=== PATIENT | female | born 1940 | race Caucasian/White ===

== ENCOUNTER 2016-12-03 18:26 | Inpatient (IN) | payer MEDICARE, BC ==
[~2016-12-03 18:26] MED LIST: Heparin 1,000 UNITS/ML VIAL ONE
--- OUTSIDE RECORDS SUMMARY | 2016-12-03 18:29 | XMS | Clinical Summary ---
:1940 Author Organization [facility] Address [address] [place] [address] Phone Care Team Providers Name Role Phone , Primary Care Provider Unavailable Allergies Not on File Current Medications Not on file Active Problems Not on file Social History Tobacco Use Types Packs/Day Years Used Date Never Assessed Sex Assigned at Date Recorded Not on file Last Filed Vital Signs Not on file Plan of Treatment Not on file Results Not on filefrom Last 3 Months
[2016-12-03 19:49] LABS: #Lymphocytes 1.8 thou/uL (1.20-3.40); #Neutrophils 7.4 thou/uL (1.40-6.50); %Basophils 0.3 % (0.0-1.0); %Eosinophils 0.1 % (0.0-10.0); %Lymphocytes 17.7 % (21.0-51.0); %Monocytes 9.6 % (0.0-10.0); Hematocrit 33.2 % (36.0-47.0); Mean Platelet Volume 5.9 fL (7.4-10.4); Red Blood Cell (RBC) Count 3.75 mill/uL (4.20-5.40); White Blood Cell (WBC) Count 10.2 thou/uL (4.8-10.8)
[2016-12-03 20:15] LABS: ALT (SGPT) Less than 7 U/L (8-55); AST (SGOT) 14 U/L (5-34); Alkaline Phosphatase 115 U/L (40-150); Anion Gap 18 mmol/L (10-20); BUN (Urea Nitrogen) 11 mg/dL (9.8-20.1); Bilirubin, Total 0.4 mg/dL (0.2-1.2); Calc. Creatinine Clearance 0 mL/min (70-130); Calcium 8.9 mg/dL (7.8-10.44); Carbon Dioxide 30 mmol/L (23-31); Chloride 96 mmol/L (98-107); Estimated GFR-MDRD Greater than 90; Globulin 3.5 g/dL (2.4-3.5); Protein, Total 6.7 g/dL (6.0-8.3)
[2016-12-03 20:20] LABS: Troponin I Less than 0.010 ng/mL (< 0.028)
[2016-12-03 20:45] LABS: Bilirubin Negative (Negative); Blood, Urine Trace (Negative); Glucose, Urine (Dipstick) Negative (Negative); Ketone, Urine 15 mg/dL (Negative); Nitrite Negative (Negative); Protein, Urine (Dipstick) Negative (Neg-Trace)
[2016-12-03 20:47] LABS: Bacteria/HPF None Seen HPF (None Seen); Hyaline Casts/LPF 0-3 HYALINE CAST LPF (0-3 Hyaline); Squamous Epithelial 0-3 HPF (0-3); WBC/HPF 0-3 HPF (0-3)
[2016-12-03] MEDS ORDERED: Ondansetron HCl/PF 4 MG/2 ML Vial ONE (21:33)
[2016-12-03] MEDS ORDERED: Potassium Chloride 40 MEQ in Sodium Chloride 0.9% 500 ML IVPB SCH (22:45)
--- NOTE | 2016-12-03 23:28 | PDOC.EVN ---
Event Note - Event Note Event Note: [id number] H&P Dictated 1. Abdominal pain + Abdominal mass 2. H/O HTN 3. H/O HPL Plan: see orders
[2016-12-03] MEDS ORDERED: Acetaminophen 325 MG TAB PO PRN (23:29)
[2016-12-03] MEDS ORDERED: HYDROcodone/Acetaminophen 5/325 mg Tablet PO PRN (23:29)
[2016-12-03] MEDS ORDERED: Ondansetron HCl/PF 4 MG/2 ML Vial IVP PRN (23:29)
--- NOTE | 2016-12-04 00:10 | CT ---
EXAM: ABDOMEN CT WITHOUT CONTRAST PELVIC CT WITHOUT CONTRAST 12/03/16 HISTORY: Abdominal pain. Abdominal mass diagnosed in October 2016. COMPARISON: Abdomen and pelvic CT [facility], 11/29/16. CORRELATION: Abdomen ultrasound 10/27/16. TECHNIQUE: Abdomen and pelvic CT are performed without intravenous or oral contrast. Coronal reformatted image are submitted for interpretation. FINDINGS: ABDOMEN CT: Lung bases are clear. Heart size is upper normal. There is a small amount of pericardial fluid. Desc ending thoracic aorta and the abdominal aorta have an overall normal caliber. No periaortic fat stra nding. Limited evaluation of the solid organs due to lack of IV contrast. Grossly, the liver, spleen, pancr eas and adrenal glands are unremarkable. Nonobstructing bilateral intrarenal calculi. Bilaterally, n o hydronephrosis or perinephric fat stranding. Bilateral ureters have an overall normal caliber. No hydroureter, periureteral fat stranding or ureterolithiasis. Note, both distal ureters are suboptima lly evaluated. No gastrohepatic, retrocrural, or periportal lymphadenopathy. There is free fluid in the perihepatic space and tracking along the right pericolic gutter. There is no evidence of free air in the abdomen. There is limited evaluation of the alimentary canal due to lack of oral contrast. There are multiple distended air filled loops of small bowel. The visualized left hemicolon appears to be decompressed. Limited evaluation of the right hemicolon and transverse colon. There is mixed attenuation, predominantly soft tissue mass in the central portion of the abdo kiley mesentery with central areas of air attenuation. Findings may represent enlarged necrotic mass . Evaluation is markedly incomplete on this examination. The mass measures 16.0 x 8.4 cm. When nayla red to the prior exam, no change. There is central fluid and air attenuation, stable. There are enlarged right lower quadrant lymph nodes. This conglomeration of lymph nodes measures 2.5 x 2.4 cm. There is swirling of vessels in the central abdominal mesentery, nonspecific. PELVIC CT: The urinary bladder is mildly distended. The uterus and adnexa are unremarkable. IMPRESSION: Soft tissue mass in the central abdominal mesentery. There is evidence of air attenuation in the ariela tral aspect along with fluid and air. 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 When compared to the prior examination, there has been no change in the mass. There is evidence o f a small bowel obstruction. Better evaluation with post contrast imaging is recommended. POS: DORONH
[2016-12-04 01:44] VITALS: BMI 15.6
[2016-12-04] MEDS: Sodium Chloride 0.9% 1,000 ML IV SCH ×3 (03:14→15:12)
[2016-12-04 05:07] LABS: #Lymphocytes 1.4 thou/uL (1.20-3.40); #Monocytes 1.3 thou/uL (0.11-0.59); #Neutrophils 7.7 thou/uL (1.40-6.50); %Eosinophils 0.1 % (0.0-10.0); %Lymphocytes 13.3 % (21.0-51.0); %Monocytes 12.2 % (0.0-10.0); Hematocrit 31.8 % (36.0-47.0); Red Blood Cell (RBC) Count 3.54 mill/uL (4.20-5.40); White Blood Cell (WBC) Count 10.3 thou/uL (4.8-10.8)
[2016-12-04 05:31] LABS: Anion Gap 14 mmol/L (10-20); BUN (Urea Nitrogen) 10 mg/dL (9.8-20.1); Calc. Creatinine Clearance 51 mL/min (70-130); Calcium 8.3 mg/dL (7.8-10.44); Carbon Dioxide 26 mmol/L (23-31); Chloride 101 mmol/L (98-107); Estimated GFR-MDRD Greater than 90
[2016-12-04 05:39] LABS: Band 12 % (5-11); Hematocrit 31.4 % (36.0-47.0); Neutrophil 69 % (42-75); Red Blood Cell (RBC) Count 3.52 mill/uL (4.20-5.40); White Blood Cell (WBC) Count 10.3 thou/uL (4.8-10.8)
--- NOTE | 2016-12-04 08:05 | HP ---
DATE OF ADMISSION: 12/03/2016 CHIEF COMPLAINT: Abdominal pain. HISTORY OF PRESENT ILLNESS: The patient is a 76-year-old female with past medical history of hypertension, hyperlipidemia, now came in today complaining of abdominal pain. Patient says she was having abdominal pain for the past few months and currently being worked up as an outpatient. The patient had a CT abdomen done as an outpatient which showed abdominal mass. The patient is supposed to see General surgeon, Dr. Gallagher as an outpatient on Tuesday. The patient says the abdominal pain got worse. The pain is all over the abdomen, constant pain. No aggravating factors, no relieving factors, associated with some nausea. Also denies any vomiting, denies any fever, denies any chills. Pain radiates all over the abdomen. Denies any chest pain. Denies any trouble breathing. PAST MEDICAL HISTORY: As per HPI. PAST SURGICAL HISTORY: Tubal ligation and appendectomy. SOCIAL HISTORY: Denies smoking, denies alcohol, denies any drugs. FAMILY HISTORY: Denies any heart problems. MEDICATIONS: Reviewed. REVIEW OF SYSTEMS: Constitutional: Denies any fever, denies any chills. HEENT : Eyes, denies any vision problems. Ears, denies any hearing loss. Neck: Denies any neck pain. CARDIOVASCULAR: Denies any chest pain. Denies any palpitations. RESPIRATORY: Denies any cough, denies any sputum production. GASTROINTESTINAL: Positive for abdominal pain. Denies nausea, vomiting. CRANIAL NERVE SYSTEM: Denies syncope, denies lightheadedness. PSYCHIATRIC: Denies depression, denies anxiety. INTEGUMENTARY: Denies any rash. GENITOURINARY: Denies dysuria. All other review of systems are reviewed and are negative. PHYSICAL EXAMINATION: CONSTITUTIONAL/VITAL SIGNS: At the time of H\T\P performed, blood pressure is 161/92, pulse oximetry 98%, heart rate 88, respiration rate 18. GENERAL APPEARANCE: The patient appears comfortable. HEENT: Pupils equal, round, and reactive. Anterior nares patent. Nose normal. Ears normal. Teeth intact. Tongue is moist. NECK: Supple. No JVD. CARDIOVASCULAR: S1, S2 present. Regular rate and rhythm. No murmurs, no rubs , no gallops. RESPIRATORY: No wheezing, no rhonchi present bilaterally. GASTROINTESTINAL: Abdomen, tender to palpate, distended, no guarding, no organomegaly. Positive for bowel sounds. MUSCULOSKELETAL: No edema. CRANIAL NERVES SYSTEM: Awake, follows commands. Speech clear, strength intact , sensory intact. PSYCHIATRIC: Mood appropriate at this time. INTEGUMENTARY: No obvious rashes seen. LABORATORY DATA: At the time of H\T\P performed, white count 10.2, hemoglobin 10.5, platelet count 562,000. Sodium 140, potassium 3, chloride 96, CO2 is 30, BUN 11, creatinine 0.54. Albumin 3.2. UA, 15 ketones, 7-[address] done in the outside ER showed large midline lower abdomen and pelvic mass seen possible small bowel etiology. ASSESSMENT AND PLAN: The patient is a 76-year-old female. 1. Abdominal mass, rule out malignancy plus abdominal pain. I did discuss with the patient about getting a repeat CT abdomen or x-ray. The patient initially refused to go to the ER. After further discussion, the patient has agreed to get an x-ray done. We will try to obtain CT or x-ray if patient agrees. We will keep the patient n.p.o. We will go ahead and consult General Surgery and Hematology/Oncology to evaluate the patient. 2. Pain, p.r.n. pain medications. 3. Hypertension. Monitor blood pressures, continue home blood pressure medications. 4. History of hyperlipidemia. Continue home medication. 5. Nausea, p.r.n. antiemetics. The case was discussed in detail with the patient. SAMEERA
[2016-12-04] MEDS: Heparin 5,000 UNITS/ML VIAL SC SCH ×3 (08:33→20:11)
[2016-12-04] MEDS: Famotidine/PF 20 mg/2ml Vial SLOW IVP SCH ×2 (08:33→20:11)
--- NOTE | 2016-12-04 10:16 | CON ---
DATE OF CONSULTATION: 12/04/2016 CHIEF COMPLAINT: Abdominal mass. HISTORY OF PRESENT ILLNESS: This is a 76-year-old female who underwent an MRI of the abdomen for ki dney stones in 2014, they used gadolinium contrast and in the next day she got sick, turned out she had high levels of gadolinium in her system. She went to [place] for diagnosis and chelation therapy with TPTA. She still has high levels. About 12 weeks ago, she was noted to have increasin g abdominal pain and a mass in the lower abdomen. She was supposed to see a surgeon, but pain got w orse and she came to the ER, she has been having some nausea, vomiting, weight loss. She has lost f rom 112 pounds to 75 pounds. PAST MEDICAL HISTORY: Hypertension, fibromyalgia, hyperlipidemia, macular degeneration, cataract, o steoporosis. PAST SURGICAL HISTORY: Tonsil and adenoidectomy, bilateral tubal ligation, appendectomy, C-spine fu zafar. ALLERGIES: To PENICILLIN, VANCOMYCIN, ATIVAN, CALCIUM CHANNEL BLOCKERS, and AMLODIPINE. 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 She still smokes about 1-2 cigarettes a day. No alcohol. FAMILY HISTORY: Noncontributory. PHYSICAL EXAMINATION: VITAL SIGNS: Afebrile, pulse 82, blood pressure 159/75, O2 sat 97.4%. GENERAL: Very thin female, lying still in no apparent distress. HEENT: Unremarkable. LUNGS: Clear. HEART: Regular rate and rhythm. ABDOMEN: She has a visible mass in the lower abdomen and it is about 10 x 20 cm filling the entire pelvis and central abdomen just below the umbilicus. It is mildly tender. LABORATORY DATA AND X-RAY FINDINGS: White count is 10, hemoglobin and hematocrit 9 and 31, platelet count 530. Electrolytes are fine. Creatinine 0.5. Urinalysis 7-[address] scan shows a la rge mass in the lower abdomen that is concerning for possible small bowel lymphoma. PLAN: I discussed the case with the radiologist, they did not feel that they will be able to do a b iopsy because of the proximity of the bowel to this mass. So, the plan is to do a laparoscopic inci sional biopsy. CONSENT: I have discussed the planned procedure as well as risk of bleeding, infection, injury to b tai, need to open. She understands and gives informed consent.
--- NOTE | 2016-12-04 10:51 | PDOC.PN ---
- Subjective Encounter Start Date: 12/04/16 Encounter Start Time: 08:00 Subjective: has abd mass slowly growing from 3 months -: no nausea -: thinks this is related to fibrosis from Gadolinium contrast she had in 2014 - Objective MAR Reviewed: Yes Vital Signs & Weight: Vital Signs (12 hours) Temp Pulse Resp BP Pulse Ox 12/04/16 08:02 97.4 F L 83 18 159/75 H 95 12/04/16 08:00 97.4 F L 83 18 95 12/04/16 00:21 97.8 F 82 20 163/79 H 99 Weight Weight 74 lb 15.315 oz I&O: 12/03/16 12/04/16 12/05/16 06:59 06:59 06:59 Intake Total 550 Balance 550 Result Diagrams: 12/04/16 04:13 12/04/16 04:13 Phys Exam - Physical Examination HEENT: PERRLA, moist MMs Neck: no JVD, supple Respiratory: no wheezing, no rales Cardiovascular: RRR, no significant murmur Gastrointestinal: soft, positive bowel sounds big mass upto umbilicus from pubic area, no tenderness Musculoskeletal: no edema, pulses present Neurological: non-focal, moves all 4 limbs Psychiatric: A&O x 3 Dx/Plan (1) Abdominal mass Code(s): R19.00 - INTRA-ABD AND PELVIC SWELLING, MASS AND LUMP, UNSP SITE Status: Acute Comment: in lower quadrants (2) Cachexia Code(s): R64 - CACHEXIA Status: Acute (3) significant weight loss Status: Acute Comment: around 75lbs (4) Anemia Code(s): D64.9 - ANEMIA, UNSPECIFIED Status: Chronic Qualifiers: Anemia type: unspecified type Qualified Code(s): D64.9 - Anemia, unspecified (5) h/o gadolinium toxicity Status: Chronic Comment: had mri with contrast in 2014 and still apparently has high levels in her body - Plan d/w , is for lap bx -: has massive mass in her mesentry -: oral iron, high prt diet when done with bx -: will eventually require hemeonc consult based on findings of Bx * . Review of Systems - Medications/Allergies Allergies/Adverse Reactions: Allergies Allergy/AdvReac Type Severity Reaction Status Date / Time Calcium Channel Blocking Allergy Verified 12/03/16 22:29 Agent Dilt lorazepam [From Ativan] Allergy Verified 12/03/16 22:29 Penicillins Allergy Verified 12/03/16 22:29 vancomycin Allergy Verified 12/03/16 22:29 Medications: Current Medications Acetaminophen (Tylenol) 650 mg PO Q4H PRN PRN Reason: Headache/Fever or Pain Hydrocodone Bitart/Acetaminophen ([place] 5/325) 1 tab PO Q4H PRN PRN Reason: Moderate Pain (4-6) Famotidine (Pepcid) 20 mg SLOW IVP Q12HR [facility] Last Admin: 12/04/16 08:33 Dose: Not Given Heparin Sodium (Porcine) (Heparin) 5,000 units SC TID [facility] Last Admin: 12/04/16 08:33 Dose: Not Given Hydralazine HCl (Apresoline) 5 mg SLOW IVP Q4H PRN PRN Reason: SBP Greater Than 170 Sodium Chloride (Normal Saline 0.9%) 1,000 mls @ 75 mls/hr IV .[id number] [facility] Last Admin: 12/04/16 03:14 Dose: 1,000 mls Levofloxacin 500 mg/ Device 100 mls @ 100 mls/hr IVPB WILLCALL [facility] Ondansetron HCl (Zofran) 4 mg IVP Q6H PRN PRN Reason: Nausea/Vomiting Sodium Chloride (Flush - Normal Saline) 10 ml IVF Q12HR [facility] Sodium Chloride (Flush - Normal Saline) 10 ml IVF PRN PRN PRN Reason: Saline Flush
[2016-12-04 12:18] LABS: Iron 20 ug/dL (50-170)
[2016-12-05] MEDS: Sodium Chloride 0.9% 1,000 ML IV SCH (04:03)
[2016-12-05] MEDS ORDERED: Fentanyl 250 MCG/5 ML VIAL ONE (07:32)
[2016-12-05] MEDS ORDERED: Levofloxacin 500 mg/D5W 100 ml Premix Bag ONE (07:44)
[2016-12-05] MEDS ORDERED: Bupivacaine HCl 0.5%/Epinephrine 1:200,000/PF 30 ml Vial ONE (07:46)
[2016-12-05] MEDS ORDERED: Ondansetron HCl/PF 4 MG/2 ML Vial IVP PRN (08:05)
[2016-12-05] MEDS ORDERED: Ondansetron HCl/PF 4 MG/2 ML Vial ONE ×2 (08:13→09:55)
[2016-12-05] MEDS ORDERED: Metoprolol Tartrate 5 MG/5 ML VIAL ONE ×2 (08:13→09:11)
[2016-12-05] MEDS ORDERED: Dexamethasone 20 MG/5 ML VIAL ONE (08:13)
[2016-12-05] MEDS ORDERED: Propofol 200 MG/20 ML VIAL ONE (08:13)
[2016-12-05] MEDS ORDERED: Lidocaine 1% PF 5 ML VIAL ONE (08:13)
[2016-12-05] MEDS ORDERED: Glycopyrrolate 0.2 MG/ML 5 ML SYRINGE ONE (08:13)
[2016-12-05] MEDS ORDERED: Sodium Chloride 0.9% 20 ML ONE (08:26)
[2016-12-05] MEDS: Famotidine/PF 20 mg/2ml Vial SLOW IVP SCH ×2 (08:41→21:03)
[2016-12-05] MEDS: Heparin 5,000 UNITS/ML VIAL SC SCH ×3 (08:41→21:03)
[2016-12-05] MEDS ORDERED: Morphine Sulfate 2 MG/ML SYRINGE SLOW IVP PRN (09:10)
[2016-12-05] MEDS ORDERED: Promethazine HCl 25 MG/ML VIAL IM PRN (09:10)
[2016-12-05] MEDS ORDERED: Acetaminophen 325 MG TAB PO PRN (09:20)
--- NOTE | 2016-12-05 09:23 | OP ---
PREOPERATIVE DIAGNOSES: Mesenteric mass, malnutrition. SURGEON: Juanpablo Colon M.D. PROCEDURES PERFORMED: Left subclavian central line placement, laparoscopic assisted incisional biop sy of mass. INDICATIONS: The patient is a 76-year-old female with a palpable mass in her pelvis causing partial small-bowel obstruction. CT scan suggests arising from the small bowel mesentery causing partial s mall-bowel obstruction. It is surrounded by bowel and was not amenable to biopsy by CT. FINDINGS: Good backflow of venous blood. J-wire threaded easily left subclavian. The mass was att ached to the anterior abdominal wall just suprapubic, it was encompassed by small bowel. DESCRIPTION OF THE PROCEDURE: After informed consent was obtained, the patient was taken to the ope rating room and given general endotracheal anesthesia. She was placed in Trendelenburg position. H er chest and neck were prepped and draped in the usual fashion. An introducer needle was inserted i n left subclavian. Good backflow of venous blood. J-wire threaded easily. The skin was incised wi th an 11 blade and the dilator was used and pre-flushed lumen catheter inserted over the wire. The wire was removed. Each of the ports aspirated. Good backflow of venous blood, flushed with saline, sutured in place with 3-0 silk suture. Sterile bandage applied. The patient tolerated the procedu re well. Her abdomen was then prepped and draped in the usual fashion. Local anesthesia infiltrate d subcutaneously and deep. A 5 mm incision was performed in the right upper quadrant. A Veress nee dle inserted. Drop test performed. Pneumoperitoneum was created to a volume of 2 liters of carbon dioxide. Then a blunt 12 mm trocar and 0-degree laparoscope direct visual entry in the abdominal ca vity. Under direct vision, two 5-mm ports were placed, one in left upper quadrant, one in right lat eral abdomen. This allowed introduction of port of instruments to do the biopsy. The mass was tarsha ched to the anterior abdominal wall with inflammatory adhesions. These were taken down bluntly. Un derneath this, there was an access point for biopsy, superior and bilateral surrounded by bowel, I c ould not access it. Once I was able to separate the peritoneum from this lower portion of the mass, I had accessed it some necrotic tumor as well as some fresh tumor. Pieces of tumor were excised sh arply and sent to pathology and then a Epifanio-Cut was placed deeply into the mass and a core was also e xcised. Hemostasis was assured. The abdomen decompressed. Scope removed. The skin closed with in terrupted 4-0 Rapide. Dermabond applied. The patient tolerated the procedure well and transferred to recovery in good condition. Sponge and needle count verified correct x2.
[2016-12-05] MEDS ORDERED: SUGAMMADEX SODIUM 500 MG/5 ML VIAL ONE (09:42)
[2016-12-05] MEDS ORDERED: Metoclopramide HCl 10 MG/2 ML VIAL ONE (10:04)
--- NOTE | 2016-12-05 11:10 | PDOC.PN ---
- Subjective Encounter Start Date: 12/05/16 Encounter Start Time: 09:40 -: old records requested/rev s/p laparoscopic biopsy and central line placement - Objective MAR Reviewed: Yes Vital Signs & Weight: Vital Signs (12 hours) Temp Pulse Resp BP Pulse Ox 12/05/16 00:16 97.9 F 85 18 148/77 H 94 L Weight Admit Weight 74 lb 15.312 oz Weight 74 lb 15.312 oz I&O: 12/04/16 12/05/16 12/06/16 06:59 06:59 06:59 Intake Total 2360 Balance 2360 Result Diagrams: 12/04/16 04:13 12/04/16 04:13 Phys Exam - Physical Examination Constitutional: NAD cachectic HEENT: PERRLA, moist MMs, sclera anicteric Neck: no JVD, supple Respiratory: no wheezing, no rales, no rhonchi central line+ Cardiovascular: RRR, no significant murmur, no rub Gastrointestinal: soft, non-tender, no distention, positive bowel sounds Musculoskeletal: no edema, pulses present Neurological: non-focal, normal sensation, moves all 4 limbs Psychiatric: normal affect, A&O x 3 Skin: no rash, normal turgor Dx/Plan (1) Abdominal mass Code(s): R19.00 - INTRA-ABD AND PELVIC SWELLING, MASS AND LUMP, UNSP SITE Status: Acute Comment: in lower quadrants (2) Protein-calorie malnutrition, severe Code(s): E43 - UNSPECIFIED SEVERE PROTEIN-CALORIE MALNUTRITION Status: Chronic (3) Cachexia Code(s): R64 - CACHEXIA Status: Acute (4) significant weight loss Status: Acute Comment: around 75lbs (5) Anemia Code(s): D64.9 - ANEMIA, UNSPECIFIED Status: Chronic Qualifiers: Anemia type: unspecified type Qualified Code(s): D64.9 - Anemia, unspecified (6) h/o gadolinium toxicity Status: Chronic Comment: had mri with contrast in 2014 and still apparently has high levels in her body - Plan cont current plan of care, plan discussed w/ family * will start TPN * follow up on pathology report * medication reviewed as below * symptomatic treatment * discussed with family bedside. Review of Systems - Review of Systems ENT: negative: Ear Pain, Ear Discharge, Nose Pain, Nose Discharge, Nose Congestion, Mouth Pain, Mouth Swelling, Throat Pain, Throat Swelling, Other Respiratory: negative: Cough, Dry, Shortness of Breath, Hemoptysis, SOB with Excertion, Pleuritic Pain, Sputum, Wheezing Cardiovascular: negative: Chest Pain, Palpitations, Orthopnea, Paroxysmal Noc. Dyspnea, Edema, Light Headedness, Other Gastrointestinal: Nausea, Abdominal Pain. negative: Vomiting, Diarrhea, Constipation, Melena, Hematochezia, Other Genitourinary: negative: Dysuria, Frequency, Incontinence, Hematuria, Retention , Other Musculoskeletal: negative: Neck Pain, Shoulder Pain, Arm Pain, Back Pain, Hand Pain, Leg Pain, Foot Pain, Other - Medications/Allergies Allergies/Adverse Reactions: Allergies Allergy/AdvReac Type Severity Reaction Status Date / Time Calcium Channel Blocking Allergy Verified 12/03/16 22:29 Agent Dilt lorazepam [From Ativan] Allergy Verified 12/03/16 22:29 Penicillins Allergy Verified 12/03/16 22:29 vancomycin Allergy Verified 12/03/16 22:29 Medications: Current Medications Acetaminophen (Tylenol) 650 mg PO Q4H PRN PRN Reason: Headache/Fever or Pain Hydrocodone Bitart/Acetaminophen ([place] 7.5/325) 1 tab PO Q4H PRN PRN Reason: Moderate Pain (4-6) Hydrocodone Bitart/Acetaminophen ([place] 7.5/325) 2 tab PO Q4H PRN PRN Reason: Severe Pain (7-10) Albuterol/Ipratropium (Duoneb) 3 ml NEB Q4H PRN PRN Reason: Wheezing Enoxaparin Sodium (Lovenox) 30 mg SC 0900 [facility] Famotidine (Pepcid) 20 mg PO Q12HR [facility] Famotidine (Pepcid) 20 mg SLOW IVP Q12HR [facility] Heparin Sodium (Porcine) (Heparin) 5,000 units SC TID [facility] Last Admin: 12/05/16 08:41 Dose: Not Given Hydralazine HCl (Apresoline) 5 mg SLOW IVP Q4H PRN PRN Reason: SBP Greater Than 170 Hydralazine HCl (Apresoline) 10 mg SLOW IVP Q4H PRN PRN Reason: SBP > 170 or DBP > 100 Sodium Chloride (Normal Saline 0.9%) 1,000 mls @ 75 mls/hr IV .[id number] [facility] Last Admin: 12/05/16 04:03 Dose: 1,000 mls Acetaminophen 1,000 mg/ Device 100 mls @ 400 mls/hr IVPB Q6HR [facility] Stop: 12/06/16 06:14 Morphine Sulfate (Morphine Sulfate) 2 mg SLOW IVP Q2H PRN PRN Reason: Mild Pain (1-3) Morphine Sulfate (Morphine Sulfate) 4 mg SLOW IVP Q2H PRN PRN Reason: Moderate Pain (4-6) Morphine Sulfate (Morphine Sulfate) 6 mg SLOW IVP Q2H PRN PRN Reason: Severe Pain (7-10) Ondansetron HCl (Zofran) 4 mg IVP Q6H PRN PRN Reason: Nausea/Vomiting Promethazine HCl (Phenergan) 12.5 mg IM Q4H PRN PRN Reason: Nausea/Vomiting Sodium Chloride (Flush - Normal Saline) 10 ml IVF Q12HR [facility] Last Admin: 12/05/16 08:41 Dose: Not Given Sodium Chloride (Flush - Normal Saline) 10 ml IVF PRN PRN PRN Reason: Saline Flush
--- NOTE | 2016-12-05 11:25 | RAD ---
CHEST 1 VIEW: Date: 12/05/16 HISTORY: Central line placement. COMPARISON: CT abdomen/pelvis dated 12/03/16. FINDINGS: Central venous catheter in place with tip at inferior SVC without complication. There is abnormal sharp attenuation of the left heart border. The base of the heart is also well see n. This may be reflective of pneumomediastinum. There is also pneumoperitoneum. IMPRESSION: 1. Interval placement of central venous catheter with tip in good position without pneumothorax. 2. Likely small volume pneumomediastinum along with pneumoperitoneum, postsurgical in nature. POS: [facility]
[2016-12-05] MEDS ORDERED: Acetaminophen 1,000 MG in Premix Bag 1 BAG IVPB SCH (12:00)
[2016-12-05] MEDS: Famotidine 20 MG TAB PO SCH (21:02)
[2016-12-05] MEDS: D5 1/2 NS w/20 mEq KCL 1,000 ML IV SCH (22:23)
[2016-12-05] MEDS: Fat Emulsion 200 ML, Sodium Acetate 2 mEq/ml 40 MEQ, Sodium Chloride 30 MEQ, Potassium ... IV SCH ×11 (22:26)
[2016-12-06 05:43] LABS: #Lymphocytes 1.1 thou/uL (1.20-3.40); #Monocytes 0.7 thou/uL (0.11-0.59); #Neutrophils 11.7 thou/uL (1.40-6.50); %Eosinophils 0.1 % (0.0-10.0); %Lymphocytes 8.4 % (21.0-51.0); %Monocytes 5.5 % (0.0-10.0); Hematocrit 29.3 % (36.0-47.0); Mean Platelet Volume 6.4 fL (7.4-10.4); Red Blood Cell (RBC) Count 3.23 mill/uL (4.20-5.40); White Blood Cell (WBC) Count 13.6 thou/uL (4.8-10.8)
[2016-12-06 06:05] LABS: Anion Gap 10 mmol/L (10-20); BUN (Urea Nitrogen) 17 mg/dL (9.8-20.1); Calc. Creatinine Clearance 38 mL/min (70-130); Calcium 8.2 mg/dL (7.8-10.44); Carbon Dioxide 25 mmol/L (23-31); Chloride 104 mmol/L (98-107); Estimated GFR-MDRD 85
[2016-12-06] MEDS: Heparin 5,000 UNITS/ML VIAL SC SCH ×3 (08:20→19:12)
[2016-12-06] MEDS: Enoxaparin Sodium 30 MG/0.3 ML SYRINGE SC SCH (08:20)
[2016-12-06] MEDS: Famotidine 20 MG TAB PO SCH ×2 (08:20→19:12)
[2016-12-06] MEDS: Famotidine/PF 20 mg/2ml Vial SLOW IVP SCH ×2 (08:20→19:12)
[2016-12-06] MEDS ORDERED: HYDROcodone/Acetaminophen 7.5/325 mg Tablet PO PRN (09:12)
--- NOTE | 2016-12-06 11:55 | PDOC.PN ---
- Subjective Encounter Start Date: 12/06/16 Encounter Start Time: 10:00 Patient seen and examined. No new complaints. No overnight events, has very little apatite - Objective MAR Reviewed: Yes Vital Signs & Weight: Vital Signs (12 hours) Temp Pulse Resp BP BP Pulse Ox 12/06/16 08:18 97.9 F 89 18 147/75 H 96 12/06/16 08:00 97.9 F 87 18 147/75 H 96 12/06/16 04:00 97.6 F 95 18 160/78 H 95 12/06/16 00:20 97.8 F 79 18 143/71 H 93 L Weight Admit Weight 74 lb 15.312 oz Weight 74 lb 15.312 oz I&O: 12/05/16 12/06/16 12/07/16 06:59 06:59 06:59 Intake Total 2360 1750 Balance 2360 1750 Result Diagrams: 12/06/16 04:24 12/06/16 04:24 Phys Exam - Physical Examination Constitutional: NAD HEENT: PERRLA, moist MMs, sclera anicteric Neck: no JVD, supple Respiratory: no wheezing, no rales, no rhonchi Cardiovascular: RRR, no significant murmur, no rub Gastrointestinal: soft, no distention, positive bowel sounds sore diffuse Musculoskeletal: no edema, pulses present Neurological: non-focal, normal sensation, moves all 4 limbs Psychiatric: normal affect, A&O x 3 Skin: no rash, normal turgor Dx/Plan (1) Abdominal mass Code(s): R19.00 - INTRA-ABD AND PELVIC SWELLING, MASS AND LUMP, UNSP SITE Status: Acute Comment: in lower quadrants (2) Protein-calorie malnutrition, severe Code(s): E43 - UNSPECIFIED SEVERE PROTEIN-CALORIE MALNUTRITION Status: Chronic (3) Cachexia Code(s): R64 - CACHEXIA Status: Acute (4) significant weight loss Status: Acute Comment: around 75lbs (5) Anemia Code(s): D64.9 - ANEMIA, UNSPECIFIED Status: Chronic Qualifiers: Anemia type: unspecified type Qualified Code(s): D64.9 - Anemia, unspecified (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 Review of Systems - Review of Systems Constitutional: negative: Fever, Chills, Sweats, Weakness, Malaise, Other ENT: negative: Ear Pain, Ear Discharge, Nose Pain, Nose Discharge, Nose Congestion, Mouth Pain, Mouth Swelling, Throat Pain, Throat Swelling, Other Respiratory: negative: Cough, Dry, Shortness of Breath, Hemoptysis, SOB with Excertion, Pleuritic Pain, Sputum, Wheezing Cardiovascular: negative: Chest Pain, Palpitations, Orthopnea, Paroxysmal Noc. Dyspnea, Edema, Light Headedness, Other Gastrointestinal: Abdominal Pain. negative: Nausea, Vomiting, Diarrhea, Constipation, Melena, Hematochezia, Other Genitourinary: negative: Dysuria, Frequency, Incontinence, Hematuria, Retention , Other Musculoskeletal: negative: Neck Pain, Shoulder Pain, Arm Pain, Back Pain, Hand Pain, Leg Pain, Foot Pain, Other - Medications/Allergies Allergies/Adverse Reactions: Allergies Allergy/AdvReac Type Severity Reaction Status Date / Time Calcium Channel Blocking Allergy Verified 12/03/16 22:29 Agent Dilt lorazepam [From Ativan] Allergy Verified 12/03/16 22:29 Penicillins Allergy Verified 12/03/16 22:29 vancomycin Allergy Verified 12/03/16 22:29 Medications: Current Medications Acetaminophen (Tylenol) 650 mg PO Q4H PRN PRN Reason: Headache/Fever or Pain Hydrocodone Bitart/Acetaminophen ([place] 7.5/325) 1 tab PO Q4H PRN PRN Reason: Moderate Pain (4-6) Hydrocodone Bitart/Acetaminophen ([place] 7.5/325) 2 tab PO Q4H PRN PRN Reason: Severe Pain (7-10) Albuterol/Ipratropium (Duoneb) 3 ml NEB Q4H PRN PRN Reason: Wheezing Enoxaparin Sodium (Lovenox) 30 mg SC 0900 [facility] Last Admin: 12/06/16 08:20 Dose: Not Given Famotidine (Pepcid) 20 mg PO Q12HR [facility] Last Admin: 12/06/16 08:20 Dose: Not Given Famotidine (Pepcid) 20 mg SLOW IVP Q12HR [facility] Last Admin: 12/06/16 08:20 Dose: Not Given Heparin Sodium (Porcine) (Heparin) 5,000 units SC TID [facility] Last Admin: 12/06/16 08:20 Dose: Not Given Hydralazine HCl (Apresoline) 5 mg SLOW IVP Q4H PRN PRN Reason: SBP Greater Than 170 Hydralazine HCl (Apresoline) 10 mg SLOW IVP Q4H PRN PRN Reason: SBP > 170 or DBP > 100 Fat Emulsion Intravenous 200 ml/ Sodium Acetate 40 meq/Sodium Chloride 30 meq/ Potassium Chloride 20 meq/Potassium Phosphate 30 mmol/Calcium Chloride 10 meq/ Magnesium Sulfate 10 meq/Multivitamins 10 ml/ Chromium/Copper/Manganese/Seleni/ Zn 5 ml/ Dextrose/Water/ Sterile Water/ Amino Acids 1,566.3159 mls @ 65.263 mls /hr IV 2200 [facility] Last Admin: 12/05/16 22:26 Dose: 1,566.3159 mls Potassium Chloride/Dextrose/Sod Cl (D5 1/2 Ns W/20 Meq Kcl) 1,000 mls @ 45 mls/ hr IV .[id number] [facility] Last Admin: 12/05/16 22:23 Dose: 1,000 mls Morphine Sulfate (Morphine Sulfate) 2 mg SLOW IVP Q2H PRN PRN Reason: Mild Pain (1-3) Morphine Sulfate (Morphine Sulfate) 4 mg SLOW IVP Q2H PRN PRN Reason: Moderate Pain (4-6) Morphine Sulfate (Morphine Sulfate) 6 mg SLOW IVP Q2H PRN PRN Reason: Severe Pain (7-10) Ondansetron HCl (Zofran) 4 mg IVP Q6H PRN PRN Reason: Nausea/Vomiting Promethazine HCl (Phenergan) 12.5 mg IM Q4H PRN PRN Reason: Nausea/Vomiting Sodium Chloride (Flush - Normal Saline) 10 ml IVF Q12HR [facility] Last Admin: 12/06/16 08:21 Dose: Not Given Sodium Chloride (Flush - Normal Saline) 10 ml IVF PRN PRN PRN Reason: Saline Flush
[2016-12-06] MEDS: D5 1/2 NS w/20 mEq KCL 1,000 ML IV SCH (19:40)
[2016-12-06] MEDS: Fat Emulsion 200 ML, Sodium Acetate 2 mEq/ml 40 MEQ, Sodium Chloride 30 MEQ, Potassium ... IV SCH ×11 (22:14)
[2016-12-07] MEDS: Heparin 5,000 UNITS/ML VIAL SC SCH ×3 (07:41→20:18)
[2016-12-07] MEDS: Famotidine 20 MG TAB PO SCH ×2 (07:41→20:18)
[2016-12-07] MEDS: Famotidine/PF 20 mg/2ml Vial SLOW IVP SCH ×2 (07:41→20:18)
[2016-12-07] MEDS: Enoxaparin Sodium 30 MG/0.3 ML SYRINGE SC SCH (07:42)
--- NOTE | 2016-12-07 10:12 | PDOC.PN ---
- Subjective Encounter Start Date: 12/07/16 Encounter Start Time: 09:20 Patient seen and examined. No new complaints. No overnight events, has abdominal pain - Objective MAR Reviewed: Yes Vital Signs & Weight: Vital Signs (12 hours) Temp Pulse Resp BP Pulse Ox 12/07/16 08:00 97.9 F 89 18 148/83 H 97 12/07/16 07:47 97.9 F 92 20 96 Weight Admit Weight 74 lb 15.312 oz Weight 74 lb 15.312 oz I&O: 12/06/16 12/07/16 12/08/16 06:59 06:59 06:59 Intake Total 1750 3740 Balance 1750 3740 Result Diagrams: 12/06/16 04:24 12/06/16 04:24 Phys Exam - Physical Examination Constitutional: NAD HEENT: PERRLA, moist MMs, sclera anicteric Neck: no JVD, supple Respiratory: no wheezing, no rales, no rhonchi Cardiovascular: RRR, no significant murmur, no rub Gastrointestinal: soft, no distention, positive bowel sounds tender, hard mass Musculoskeletal: no edema, pulses present Neurological: non-focal, normal sensation, moves all 4 limbs Psychiatric: normal affect, A&O x 3 Skin: no rash, normal turgor Dx/Plan (1) Abdominal mass Code(s): R19.00 - INTRA-ABD AND PELVIC SWELLING, MASS AND LUMP, UNSP SITE Status: Acute Comment: in lower quadrants (2) Protein-calorie malnutrition, severe Code(s): E43 - UNSPECIFIED SEVERE PROTEIN-CALORIE MALNUTRITION Status: Chronic (3) Cachexia Code(s): R64 - CACHEXIA Status: Acute (4) significant weight loss Status: Acute Comment: around 75lbs (5) Anemia Code(s): D64.9 - ANEMIA, UNSPECIFIED Status: Chronic Qualifiers: Anemia type: unspecified type Qualified Code(s): D64.9 - Anemia, unspecified (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 * symptomatic treatment * continue TPN. Review of Systems - Review of Systems Eyes: negative: Pain, Vision Change, Conjunctivae Inflammation, Eyelid Inflammation, Redness, Other ENT: negative: Ear Pain, Ear Discharge, Nose Pain, Nose Discharge, Nose Congestion, Mouth Pain, Mouth Swelling, Throat Pain, Throat Swelling, Other Respiratory: negative: Cough, Dry, Shortness of Breath, Hemoptysis, SOB with Excertion, Pleuritic Pain, Sputum, Wheezing Cardiovascular: negative: Chest Pain, Palpitations, Orthopnea, Paroxysmal Noc. Dyspnea, Edema, Light Headedness, Other Gastrointestinal: Abdominal Pain. negative: Nausea, Vomiting, Diarrhea, Constipation, Melena, Hematochezia, Other Genitourinary: negative: Dysuria, Frequency, Incontinence, Hematuria, Retention , Other Musculoskeletal: negative: Neck Pain, Shoulder Pain, Arm Pain, Back Pain, Hand Pain, Leg Pain, Foot Pain, Other - Medications/Allergies Allergies/Adverse Reactions: Allergies Allergy/AdvReac Type Severity Reaction Status Date / Time Calcium Channel Blocking Allergy Verified 12/03/16 22:29 Agent Dilt lorazepam [From Ativan] Allergy Verified 12/03/16 22:29 Penicillins Allergy Verified 12/03/16 22:29 vancomycin Allergy Verified 12/03/16 22:29 Medications: Current Medications Acetaminophen (Tylenol) 650 mg PO Q4H PRN PRN Reason: Headache/Fever or Pain Hydrocodone Bitart/Acetaminophen ([place] 7.5/325) 1 tab PO Q4H PRN PRN Reason: Moderate Pain (4-6) Hydrocodone Bitart/Acetaminophen ([place] 7.5/325) 2 tab PO Q4H PRN PRN Reason: Severe Pain (7-10) Albuterol/Ipratropium (Duoneb) 3 ml NEB Q4H PRN PRN Reason: Wheezing Enoxaparin Sodium (Lovenox) 30 mg SC 0900 [facility] Last Admin: 12/07/16 07:42 Dose: Not Given Famotidine (Pepcid) 20 mg PO Q12HR [facility] Last Admin: 12/07/16 07:41 Dose: Not Given Famotidine (Pepcid) 20 mg SLOW IVP Q12HR [facility] Last Admin: 12/07/16 07:41 Dose: Not Given Heparin Sodium (Porcine) (Heparin) 5,000 units SC TID [facility] Last Admin: 12/07/16 07:41 Dose: Not Given Hydralazine HCl (Apresoline) 5 mg SLOW IVP Q4H PRN PRN Reason: SBP Greater Than 170 Hydralazine HCl (Apresoline) 10 mg SLOW IVP Q4H PRN PRN Reason: SBP > 170 or DBP > 100 Fat Emulsion Intravenous 200 ml/ Sodium Acetate 40 meq/Sodium Chloride 30 meq/ Potassium Chloride 20 meq/Potassium Phosphate 30 mmol/Calcium Chloride 10 meq/ Magnesium Sulfate 10 meq/Multivitamins 10 ml/ Chromium/Copper/Manganese/Seleni/ Zn 5 ml/ Dextrose/Water/ Sterile Water/ Amino Acids 1,566.3159 mls @ 65.263 mls /hr IV 2200 [facility] Last Admin: 12/06/16 22:14 Dose: 1,566.3159 mls Potassium Chloride/Dextrose/Sod Cl (D5 1/2 Ns W/20 Meq Kcl) 1,000 mls @ 45 mls/ hr IV .[id number] [facility] Last Admin: 12/06/16 19:40 Dose: 1,000 mls Morphine Sulfate (Morphine Sulfate) 2 mg SLOW IVP Q2H PRN PRN Reason: Mild Pain (1-3) Morphine Sulfate (Morphine Sulfate) 4 mg SLOW IVP Q2H PRN PRN Reason: Moderate Pain (4-6) Morphine Sulfate (Morphine Sulfate) 6 mg SLOW IVP Q2H PRN PRN Reason: Severe Pain (7-10) Ondansetron HCl (Zofran) 4 mg IVP Q6H PRN PRN Reason: Nausea/Vomiting Promethazine HCl (Phenergan) 12.5 mg IM Q4H PRN PRN Reason: Nausea/Vomiting Sodium Chloride (Flush - Normal Saline) 10 ml IVF Q12HR [facility] Last Admin: 12/07/16 07:42 Dose: Not Given Sodium Chloride (Flush - Normal Saline) 10 ml IVF PRN PRN PRN Reason: Saline Flush
[2016-12-07] MEDS: D5 1/2 NS w/20 mEq KCL 1,000 ML IV SCH (16:49)
[2016-12-07] MEDS: Fat Emulsion 200 ML, Sodium Acetate 2 mEq/ml 40 MEQ, Sodium Chloride 30 MEQ, Potassium ... IV SCH ×11 (21:47)
[2016-12-08 04:53] LABS: ALT (SGPT) Less than 7 U/L (8-55); AST (SGOT) 26 U/L (5-34); Alkaline Phosphatase 100 U/L (40-150); Anion Gap 12 mmol/L (10-20); BUN (Urea Nitrogen) 12 mg/dL (9.8-20.1); Bilirubin, Total 0.3 mg/dL (0.2-1.2); Calc. Creatinine Clearance 57 mL/min (70-130); Calcium 7.9 mg/dL (7.8-10.44); Carbon Dioxide 31 mmol/L (23-31); Chloride 96 mmol/L (98-107); Estimated GFR-MDRD Greater than 90; Globulin 2.9 g/dL (2.4-3.5); Magnesium 1.5 mg/dL (1.6-2.6); Phosphorus 2.2 mg/dL (2.3-4.7); Protein, Total 5.5 g/dL (6.0-8.3)
[2016-12-08] MEDS ORDERED: Magnesium Sulfate 4 GM, Admixture Fee 1 EACH in Sodium Chloride 0.9% 250 ML 250 ML IVPB SCH (07:30)
[2016-12-08] MEDS ORDERED: Potassium Phosphate 30 MMOL, Admixture Fee 1 EACH in Sodium Chloride 0.9% 500 ML IVPB SCH (07:30)
[2016-12-08] MEDS: Famotidine/PF 20 mg/2ml Vial SLOW IVP SCH ×2 (09:07→20:22)
[2016-12-08] MEDS: Heparin 5,000 UNITS/ML VIAL SC SCH (09:07)
[2016-12-08] MEDS: Famotidine 20 MG TAB PO SCH ×2 (09:08→20:21)
[2016-12-08] MEDS: Enoxaparin Sodium 30 MG/0.3 ML SYRINGE SC SCH (09:08)
--- NOTE | 2016-12-08 10:27 | PDOC.PN ---
- Subjective Encounter Start Date: 12/08/16 Encounter Start Time: 09:15 Patient seen and examined. No new complaints. No overnight events - Objective MAR Reviewed: Yes Vital Signs & Weight: Vital Signs (12 hours) Temp Pulse Resp BP BP Pulse Ox 12/08/16 08:00 98.1 F 97 18 95 12/08/16 07:11 98.1 F 97 18 146/78 H 95 12/08/16 04:47 98.4 F 20 152/80 H 94 L 12/07/16 23:57 99.3 F 98 20 136/84 94 L Weight Admit Weight 74 lb 15.312 oz Weight 74 lb 15.312 oz I&O: 12/07/16 12/08/16 12/09/16 06:59 06:59 06:59 Intake Total 3740 2810 Balance 3740 2810 Result Diagrams: 12/06/16 04:24 12/08/16 04:10 Phys Exam - Physical Examination Constitutional: NAD HEENT: PERRLA, moist MMs, sclera anicteric Neck: no JVD, supple Respiratory: no wheezing, no rales, no rhonchi Cardiovascular: RRR, no significant murmur, no rub Gastrointestinal: soft, no distention, positive bowel sounds abdominal tendeness, mass Musculoskeletal: no edema, pulses present Neurological: non-focal, normal sensation, moves all 4 limbs Psychiatric: normal affect, A&O x 3 Skin: no rash, normal turgor Dx/Plan (1) Abdominal mass Code(s): R19.00 - INTRA-ABD AND PELVIC SWELLING, MASS AND LUMP, UNSP SITE Status: Acute Comment: in lower quadrants (2) Protein-calorie malnutrition, severe Code(s): E43 - UNSPECIFIED SEVERE PROTEIN-CALORIE MALNUTRITION Status: Chronic (3) Cachexia Code(s): R64 - CACHEXIA Status: Acute (4) significant weight loss Status: Acute Comment: around 75lbs (5) Anemia Code(s): D64.9 - ANEMIA, UNSPECIFIED Status: Chronic Qualifiers: Anemia type: unspecified type Qualified Code(s): D64.9 - Anemia, unspecified (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 * continue IVF with potassium, continue TPN * await pathology report * further plan after pathology report * medication reviewed as below * symptomatic treatment * medically stable with current treatment Review of Systems - Review of Systems Eyes: negative: Pain, Vision Change, Conjunctivae Inflammation, Eyelid Inflammation, Redness, Other ENT: negative: Ear Pain, Ear Discharge, Nose Pain, Nose Discharge, Nose Congestion, Mouth Pain, Mouth Swelling, Throat Pain, Throat Swelling, Other Respiratory: negative: Cough, Dry, Shortness of Breath, Hemoptysis, SOB with Excertion, Pleuritic Pain, Sputum, Wheezing Cardiovascular: negative: Chest Pain, Palpitations, Orthopnea, Paroxysmal Noc. Dyspnea, Edema, Light Headedness, Other Gastrointestinal: Nausea, Abdominal Pain. negative: Vomiting, Diarrhea, Constipation, Melena, Hematochezia, Other Genitourinary: negative: Dysuria, Frequency, Incontinence, Hematuria, Retention , Other Musculoskeletal: negative: Neck Pain, Shoulder Pain, Arm Pain, Back Pain, Hand Pain, Leg Pain, Foot Pain, Other - Medications/Allergies Allergies/Adverse Reactions: Allergies Allergy/AdvReac Type Severity Reaction Status Date / Time Calcium Channel Blocking Allergy Verified 12/03/16 22:29 Agent Dilt lorazepam [From Ativan] Allergy Verified 12/03/16 22:29 Penicillins Allergy Verified 12/03/16 22:29 vancomycin Allergy Verified 12/03/16 22:29 Medications: Current Medications Acetaminophen (Tylenol) 650 mg PO Q4H PRN PRN Reason: Headache/Fever or Pain Hydrocodone Bitart/Acetaminophen ([place] 7.5/325) 1 tab PO Q4H PRN PRN Reason: Moderate Pain (4-6) Hydrocodone Bitart/Acetaminophen ([place] 7.5/325) 2 tab PO Q4H PRN PRN Reason: Severe Pain (7-10) Albuterol/Ipratropium (Duoneb) 3 ml NEB Q4H PRN PRN Reason: Wheezing Enoxaparin Sodium (Lovenox) 30 mg SC 0900 [facility] Last Admin: 12/08/16 09:08 Dose: Not Given Famotidine (Pepcid) 20 mg PO Q12HR [facility] Last Admin: 12/08/16 09:08 Dose: Not Given Famotidine (Pepcid) 20 mg SLOW IVP Q12HR [facility] Last Admin: 12/08/16 09:07 Dose: Not Given Hydralazine HCl (Apresoline) 5 mg SLOW IVP Q4H PRN PRN Reason: SBP Greater Than 170 Hydralazine HCl (Apresoline) 10 mg SLOW IVP Q4H PRN PRN Reason: SBP > 170 or DBP > 100 Potassium Chloride/Dextrose/Sod Cl (D5 1/2 Ns W/20 Meq Kcl) 1,000 mls @ 45 mls/ hr IV .[id number] [facility] Last Admin: 12/07/16 16:49 Dose: 1,000 mls Fat Emulsion Intravenous 200 ml/ Sodium Acetate 40 meq/Sodium Chloride 30 meq/ Potassium Chloride 40 meq/Potassium Phosphate 30 mmol/Calcium Chloride 10 meq/ Magnesium Sulfate 15 meq/Multivitamins 10 ml/ Chromium/Copper/Manganese/Seleni/ Zn 5 ml/ Dextrose/Water/ Sterile Water/ Amino Acids 1,577.5474 mls @ 65.731 mls /hr IV 2200 [facility] Magnesium Sulfate 4 gm/Miscellaneous Medication 1 each/ Sodium Chloride 258 mls @ 86 mls/hr IVPB ONE [facility] Stop: 12/08/16 12:00 Last Admin: 12/08/16 09:02 Dose: 258 mls Potassium Phosphate 30 mmol/Miscellaneous Medication 1 each/ Sodium Chloride 510 mls @ 83.3 mls/hr IVPB ONE [facility] Stop: 12/08/16 12:00 Morphine Sulfate (Morphine Sulfate) 2 mg SLOW IVP Q2H PRN PRN Reason: Mild Pain (1-3) Morphine Sulfate (Morphine Sulfate) 4 mg SLOW IVP Q2H PRN PRN Reason: Moderate Pain (4-6) Morphine Sulfate (Morphine Sulfate) 6 mg SLOW IVP Q2H PRN PRN Reason: Severe Pain (7-10) Ondansetron HCl (Zofran) 4 mg IVP Q6H PRN PRN Reason: Nausea/Vomiting Promethazine HCl (Phenergan) 12.5 mg IM Q4H PRN PRN Reason: Nausea/Vomiting Sodium Chloride (Flush - Normal Saline) 10 ml IVF Q12HR [facility] Last Admin: 12/08/16 09:04 Dose: 10 ml Sodium Chloride (Flush - Normal Saline) 10 ml IVF PRN PRN PRN Reason: Saline Flush
[2016-12-08] MEDS: D5 1/2 NS w/20 mEq KCL 1,000 ML IV SCH (16:46)
[2016-12-08] MEDS: Fat Emulsion 200 ML, Sodium Acetate 2 mEq/ml 40 MEQ, Sodium Chloride 30 MEQ, Potassium ... IV SCH ×11 (22:07)
[2016-12-09 04:41] LABS: #Eosinphils 0.1 thou/uL (0.0-0.7); #Lymphocytes 1.6 thou/uL (1.20-3.40); #Monocytes 1.5 thou/uL (0.11-0.59); #Neutrophils 12.4 thou/uL (1.40-6.50); %Basophils 0.1 % (0.0-1.0); %Eosinophils 0.3 % (0.0-10.0); %Lymphocytes 10.3 % (21.0-51.0); %Monocytes 9.6 % (0.0-10.0); Hematocrit 28.9 % (36.0-47.0); Mean Platelet Volume 6.6 fL (7.4-10.4); Red Blood Cell (RBC) Count 3.27 mill/uL (4.20-5.40); White Blood Cell (WBC) Count 15.6 thou/uL (4.8-10.8)
[2016-12-09 05:14] LABS: ALT (SGPT) 7 U/L (8-55); AST (SGOT) 27 U/L (5-34); Alkaline Phosphatase 119 U/L (40-150); Anion Gap 10 mmol/L (10-20); BUN (Urea Nitrogen) 11 mg/dL (9.8-20.1); Bilirubin, Total 0.4 mg/dL (0.2-1.2); Calc. Creatinine Clearance 56 mL/min (70-130); Calcium 7.8 mg/dL (7.8-10.44); Carbon Dioxide 29 mmol/L (23-31); Chloride 99 mmol/L (98-107); Estimated GFR-MDRD Greater than 90; Magnesium 2.1 mg/dL (1.6-2.6); Phosphorus 2.4 mg/dL (2.3-4.7); Protein, Total 5.5 g/dL (6.0-8.3)
[2016-12-09] MEDS: Famotidine/PF 20 mg/2ml Vial SLOW IVP SCH ×2 (10:22→21:01)
[2016-12-09] MEDS: Enoxaparin Sodium 30 MG/0.3 ML SYRINGE SC SCH (10:22)
[2016-12-09] MEDS: Famotidine 20 MG TAB PO SCH ×2 (10:22→21:01)
[2016-12-09] MEDS: D5 1/2 NS w/20 mEq KCL 1,000 ML IV SCH (10:51)
--- NOTE | 2016-12-09 11:50 | PDOC.PN ---
- Subjective Encounter Start Date: 12/09/16 Encounter Start Time: 08:20 pt has low grade fever, has abdomen pain Patient seen and examined. No new complaints. No overnight events - Objective MAR Reviewed: Yes Vital Signs & Weight: Vital Signs (12 hours) Temp Pulse Resp BP Pulse Ox 12/09/16 10:57 100.1 F H 84 16 146/82 H 96 12/09/16 08:00 98.4 F 98 18 94 L 12/09/16 07:27 98.4 F 98 18 147/82 H 94 L Weight Admit Weight 74 lb 15.312 oz Weight 74 lb 15.312 oz I&O: 12/08/16 12/09/16 12/10/16 06:59 06:59 06:59 Intake Total 2810 1500 120 Balance 2810 1500 120 Result Diagrams: 12/09/16 04:29 12/09/16 04:29 Phys Exam - Physical Examination Constitutional: NAD HEENT: PERRLA, moist MMs, sclera anicteric Neck: no JVD, supple Respiratory: no wheezing, no rales, no rhonchi Cardiovascular: RRR, no significant murmur, no rub Gastrointestinal: soft, no distention, positive bowel sounds tender and mass+ Musculoskeletal: no edema, pulses present Neurological: non-focal, normal sensation, moves all 4 limbs Psychiatric: normal affect, A&O x 3 Skin: no rash, normal turgor Dx/Plan (1) Abdominal mass Code(s): R19.00 - INTRA-ABD AND PELVIC SWELLING, MASS AND LUMP, UNSP SITE Status: Acute Comment: in lower quadrants (2) Protein-calorie malnutrition, severe Code(s): E43 - UNSPECIFIED SEVERE PROTEIN-CALORIE MALNUTRITION Status: Chronic (3) Cachexia Code(s): R64 - CACHEXIA Status: Acute (4) significant weight loss Status: Acute Comment: around 75lbs (5) Anemia Code(s): D64.9 - ANEMIA, UNSPECIFIED Status: Chronic Qualifiers: Anemia type: unspecified type Qualified Code(s): D64.9 - Anemia, unspecified (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 Review of Systems - Review of Systems Constitutional: Fever. negative: Chills, Sweats, Weakness, Malaise, Other ENT: negative: Ear Pain, Ear Discharge, Nose Pain, Nose Discharge, Nose Congestion, Mouth Pain, Mouth Swelling, Throat Pain, Throat Swelling, Other Respiratory: negative: Cough, Dry, Shortness of Breath, Hemoptysis, SOB with Excertion, Pleuritic Pain, Sputum, Wheezing Cardiovascular: negative: Chest Pain, Palpitations, Orthopnea, Paroxysmal Noc. Dyspnea, Edema, Light Headedness, Other Gastrointestinal: Abdominal Pain. negative: Nausea, Vomiting, Diarrhea, Constipation, Melena, Hematochezia, Other Genitourinary: negative: Dysuria, Frequency, Incontinence, Hematuria, Retention , Other Musculoskeletal: negative: Neck Pain, Shoulder Pain, Arm Pain, Back Pain, Hand Pain, Leg Pain, Foot Pain, Other - Medications/Allergies Allergies/Adverse Reactions: Allergies Allergy/AdvReac Type Severity Reaction Status Date / Time Calcium Channel Blocking Allergy Verified 12/03/16 22:29 Agent Dilt lorazepam [From Ativan] Allergy Verified 12/03/16 22:29 Penicillins Allergy Verified 12/03/16 22:29 vancomycin Allergy Verified 12/03/16 22:29 Medications: Current Medications Acetaminophen (Tylenol) 650 mg PO Q4H PRN PRN Reason: Headache/Fever or Pain Hydrocodone Bitart/Acetaminophen ([place] 7.5/325) 1 tab PO Q4H PRN PRN Reason: Moderate Pain (4-6) Hydrocodone Bitart/Acetaminophen ([place] 7.5/325) 2 tab PO Q4H PRN PRN Reason: Severe Pain (7-10) Albuterol/Ipratropium (Duoneb) 3 ml NEB Q4H PRN PRN Reason: Wheezing Enoxaparin Sodium (Lovenox) 30 mg SC 0900 [facility] Last Admin: 12/09/16 10:22 Dose: Not Given Famotidine (Pepcid) 20 mg PO Q12HR [facility] Last Admin: 12/09/16 10:22 Dose: Not Given Famotidine (Pepcid) 20 mg SLOW IVP Q12HR [facility] Last Admin: 12/09/16 10:22 Dose: Not Given Hydralazine HCl (Apresoline) 5 mg SLOW IVP Q4H PRN PRN Reason: SBP Greater Than 170 Hydralazine HCl (Apresoline) 10 mg SLOW IVP Q4H PRN PRN Reason: SBP > 170 or DBP > 100 Potassium Chloride/Dextrose/Sod Cl (D5 1/2 Ns W/20 Meq Kcl) 1,000 mls @ 45 mls/ hr IV .[id number] [facility] Last Admin: 12/09/16 10:51 Dose: 1,000 mls Fat Emulsion Intravenous 200 ml/ Sodium Acetate 40 meq/Sodium Chloride 30 meq/ Potassium Chloride 40 meq/Potassium Phosphate 30 mmol/Calcium Chloride 10 meq/ Magnesium Sulfate 15 meq/Multivitamins 10 ml/ Chromium/Copper/Manganese/Seleni/ Zn 5 ml/ Dextrose/Water/ Sterile Water/ Amino Acids 1,577.5474 mls @ 65.731 mls /hr IV 2200 [facility] Last Admin: 12/08/16 22:07 Dose: 1,577.5474 mls Morphine Sulfate (Morphine Sulfate) 2 mg SLOW IVP Q2H PRN PRN Reason: Mild Pain (1-3) Morphine Sulfate (Morphine Sulfate) 4 mg SLOW IVP Q2H PRN PRN Reason: Moderate Pain (4-6) Morphine Sulfate (Morphine Sulfate) 6 mg SLOW IVP Q2H PRN PRN Reason: Severe Pain (7-10) Ondansetron HCl (Zofran) 4 mg IVP Q6H PRN PRN Reason: Nausea/Vomiting Promethazine HCl (Phenergan) 12.5 mg IM Q4H PRN PRN Reason: Nausea/Vomiting Sodium Chloride (Flush - Normal Saline) 10 ml IVF Q12HR [facility] Last Admin: 12/09/16 10:22 Dose: Not Given Sodium Chloride (Flush - Normal Saline) 10 ml IVF PRN PRN PRN Reason: Saline Flush
--- NOTE | 2016-12-09 22:04 | CON ---
DATE OF CONSULTATION: 12/09/2016 REASON FOR CONSULTATION: Poorly differentiated carcinoma. HISTORY OF PRESENT ILLNESS: Ms. Booker is a pleasant 76-year-old female who presented to the emergency room on 12/03/2016 with complaints of abdominal pain. She has had intermittent abdominal pain for the last 2 years. It started in 2014 when she had a reaction to gadolinium. She has undergone chelation therapy in [place], ending 1 year ago. Over the past 2 years, she has lost approximately 40 pounds. She has had poor appetite and eating difficulties. In the last 6 weeks, she has had increasing abdominal firmness and distention. She was undergoing outpatient workup. In 10/2016, she had an abdominal ultrasound, which showed a large right lower quadrant mass. It was favored to be gynecological in origin. She had a transvaginal pelvic ultrasound in early November and was noted that the mass abutted the right ovary as well the uterus. The exact origin of the mass could not be delineated. She was sent to Dr. Nunes at the [facility]'s [place]. A CEA and CA-125 were performed. Her CEA was normal. Her CA-125 was mildly elevated at 42. An abdominal and pelvis CT was done at [facility] on 11/29 and noted a hypodensity in the left lobe of the liver with the largest measuring 2.2 cm. There was a large lower abdominal and upper pelvic midline mass measuring 7.9 x 16.8 cm x 11 cm. It was from the uterus and felt that it was a small bowel origin. She was to follow up with Dr. Gallagher as an outpatient, but presented to our emergency room with abdominal pain. A repeat abdominal and pelvis CT was performed. This was without contrast as patient refused contrast. The mass measured 16 cm x 8.4 cm. There was a conglomeration of lymph nodes of the right lower quadrant. There was a concern for partial small-bowel obstruction. Dr. Colon saw the patient and performed a biopsy. The mass was attached to the anterior abdominal wall just suprapubic. Pathology returned poorly differentiated carcinoma. There was no distinct pattern of growth, the only relevant stain was CDX-2. This tends to be intestinal or ovarian phenotype.Patient has never had a colonoscopy. Patient has been started on TPN as she had poor nutrition over the past several months. We were asked to give her opinion regarding diagnosis. PAST MEDICAL HISTORY: 1. Gadolinium toxicity with chelation therapy. 2. Hypertension. 3. Hyperlipidemia. PAST SURGICAL HISTORY: 1. Tubal ligation. 2. Appendectomy. ALLERGIES: CALCIUM CHANNEL BLOCKERS, ATIVAN, GADALINIUM DERIVATIVES, PENICILLIN , and VANCOMYCIN. HOME MEDICATIONS: Enalapril 20 mg b.i.d. FAMILY HISTORY: There is no history of breast or cervical or ovarian cancer. No history of GI cancer. Her mother had gliosarcoma at age 92. SOCIAL HISTORY: , lives with his spouse, 4 children. Everyday smoker, half a pack. No alcohol or illicit drug use. REVIEW OF SYSTEMS: CONSTITUTIONAL: No fever, chills, night sweats. Positive for poor appetite and a 40-pound weight loss in the last 2 years. EYES: No blurred or double vision. ENT: No pain, hoarseness, sore throat, or dysphagia. CARDIOVASCULAR: No chest pain, palpitations or syncope. RESPIRATORY: No shortness of breath, dyspnea on exertion or orthopnea. GASTROINTESTINAL: Positive for poor appetite. Positive for nausea and abdominal pain. Denies any melena or hematochezia. GENITOURINARY: No dysuria or hematuria. MUSCULOSKELETAL: No joint or back pain. SKIN: No rash or pruritus. HEMATOLOGIC: No bleeding, bruising or clotting. NEUROLOGIC: Denies weakness, headache, numbness, tingling or seizure activity. PSYCHIATRIC: Denies anxiety or depression. PHYSICAL EXAMINATION: VITAL SIGNS: Temperatures 100.1, pulse is 84, respiratory rate 16, BP is 146/ 82. She is 96% on room air. GENERAL: This is a cachectic female in no acute distress. HEENT: Normocephalic, atraumatic. Pupils equal and reactive to light. NECK: Supple without JVD or masses. CARDIOVASCULAR: Regular rate and rhythm. LUNGS: Clear to auscultation. ABDOMEN: Firm, distended with palpable mass at midline. EXTREMITIES: No clubbing, cyanosis or edema. SKIN: No rash. HEMATOLOGIC: No petechia or purpura. NEUROLOGICAL: Nonfocal. LYMPHATIC: There is no palpable lymphadenopathy. PHYSIATRIC: She is alert and oriented and appropriate. PERTINENT LABORATORY AND X-RAYS: Current WBCs are 15.6, hemoglobin 9.1, hematocrit 28.9, platelet count 251,000. She has got 80% neutrophils, 10% lymphocytes. Sodium is 135, potassium 3.4, chloride 99, CO2 is 29, BUN is 11, creatinine 0.45, calcium 7.8, phosphorus 2.4, magnesium 2.1, total bilirubin is 0.4, ALT is 7, alkaline phosphatase is 119. Serum total protein is 5.5, albumin 2.5, globulin 3, B12 is 988. Radiology per HPI. ASSESSMENT: 1. 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 2. History of gadolinium toxicity. 3. Protein deficient malnutrition. DISCUSSION: Case discussed with Dr. Mario. The patient's tumor markers were essentially negative approximately 3 weeks ago. We will repeat them at this time. The origin of this tumor is unclear. I spoke with GI. She would need a bowel prep for colonoscopy. Patient unlikely to tolerate secondary to abdominal pain and partial obstruction. Patient refuses IV contrast for further scanning. Patient and family are considering transfer to [facility].. Dr. Colon has contacted someone there. She is on TPN for her malnutrition and antibiotics for her low grade fever. Thank you for the consult. We will follow her closely. [facility]
[2016-12-09] MEDS: Fat Emulsion 200 ML, Sodium Acetate 2 mEq/ml 40 MEQ, Sodium Chloride 30 MEQ, Potassium ... IV SCH ×11 (22:17)
[2016-12-10] MEDS: Ondansetron HCl/PF 4 MG/2 ML Vial IVP PRN ×3 (04:14→22:23)
[2016-12-10 06:00] LABS: ALT (SGPT) Less than 7 U/L (8-55); AST (SGOT) 29 U/L (5-34); Alkaline Phosphatase 173 U/L (40-150); Anion Gap 12 mmol/L (10-20); BUN (Urea Nitrogen) 13 mg/dL (9.8-20.1); Bilirubin, Total 0.4 mg/dL (0.2-1.2); Calc. Creatinine Clearance 54 mL/min (70-130); Calcium 8.4 mg/dL (7.8-10.44); Carbon Dioxide 26 mmol/L (23-31); Chloride 100 mmol/L (98-107); Estimated GFR-MDRD Greater than 90; Globulin 3.3 g/dL (2.4-3.5); Magnesium 2.1 mg/dL (1.6-2.6); Phosphorus 2.7 mg/dL (2.3-4.7); Protein, Total 6.1 g/dL (6.0-8.3)
[2016-12-10] MEDS: Famotidine/PF 20 mg/2ml Vial SLOW IVP SCH ×2 (11:18→19:34)
[2016-12-10] MEDS: Enoxaparin Sodium 30 MG/0.3 ML SYRINGE SC SCH (11:18)
[2016-12-10] MEDS: Famotidine 20 MG TAB PO SCH ×2 (11:18→19:34)
[2016-12-10] MEDS: D5 1/2 NS w/20 mEq KCL 1,000 ML IV SCH (11:18)
--- NOTE | 2016-12-10 13:08 | PDOC.PN ---
- Subjective Encounter Start Date: 12/10/16 Encounter Start Time: 07:50 Patient seen and examined. No new complaints. No overnight events - Objective MAR Reviewed: Yes Vital Signs & Weight: Vital Signs (12 hours) Temp Pulse Resp BP Pulse Ox 12/10/16 08:00 98.0 F 95 18 96 12/10/16 07:33 98.0 F 95 18 156/80 H 96 12/10/16 05:54 97.8 F 98 18 160/81 H 95 Weight Admit Weight 74 lb 15.312 oz Weight 74 lb 15.312 oz I&O: 12/09/16 12/10/16 12/11/16 06:59 06:59 06:59 Intake Total 1500 120 Output Total 1500 Balance 1500 -1380 Result Diagrams: 12/09/16 04:29 12/10/16 05:22 Phys Exam - Physical Examination Constitutional: NAD HEENT: PERRLA, moist MMs, sclera anicteric Neck: no JVD, supple Respiratory: no wheezing, no rales, no rhonchi Cardiovascular: RRR, no significant murmur, no rub Gastrointestinal: soft, no distention, positive bowel sounds tender mass Musculoskeletal: no edema, pulses present Neurological: non-focal, normal sensation Psychiatric: normal affect, A&O x 3 Skin: no rash, normal turgor Dx/Plan (1) Abdominal mass Code(s): R19.00 - INTRA-ABD AND PELVIC SWELLING, MASS AND LUMP, UNSP SITE Status: Acute Comment: in lower quadrants (2) Protein-calorie malnutrition, severe Code(s): E43 - UNSPECIFIED SEVERE PROTEIN-CALORIE MALNUTRITION Status: Chronic (3) Cachexia Code(s): R64 - CACHEXIA Status: Acute (4) significant weight loss Status: Acute Comment: around 75lbs (5) Anemia Code(s): D64.9 - ANEMIA, UNSPECIFIED Status: Chronic Qualifiers: Anemia type: unspecified type Qualified Code(s): D64.9 - Anemia, unspecified (6) h/o gadolinium toxicity Status: Chronic Comment: had mri with contrast in 2014 and still apparently has high levels in her body (7) Abnormal blood electrolyte level Code(s): E87.8 - OTH DISORDERS OF ELECTROLYTE AND FLUID BALANCE, NEC Status: Acute - Plan cont current plan of care * spoke with Dr Colon, here locally can not be operable mass * spoke with oncology, origin is not clear for mass but will need to transfer to [facility] * contineu TPN * medication reviewed as below * symptomatic treatment * transfer process started by oncology. Review of Systems - Review of Systems ENT: negative: Ear Pain, Ear Discharge, Nose Pain, Nose Discharge, Nose Congestion, Mouth Pain, Mouth Swelling, Throat Pain, Throat Swelling, Other Respiratory: negative: Cough, Dry, Shortness of Breath, Hemoptysis, SOB with Excertion, Pleuritic Pain, Sputum, Wheezing Cardiovascular: negative: Chest Pain, Palpitations, Orthopnea, Paroxysmal Noc. Dyspnea, Edema, Light Headedness, Other Gastrointestinal: Abdominal Pain. negative: Nausea, Vomiting, Diarrhea, Constipation, Melena, Hematochezia, Other Genitourinary: negative: Dysuria, Frequency, Incontinence, Hematuria, Retention , Other Musculoskeletal: negative: Neck Pain, Shoulder Pain, Arm Pain, Back Pain, Hand Pain, Leg Pain, Foot Pain, Other Skin: negative: Rash, Lesions, Ralf, Bruising, Other - Medications/Allergies Allergies/Adverse Reactions: Allergies Allergy/AdvReac Type Severity Reaction Status Date / Time Calcium Channel Blocking Allergy Verified 12/03/16 22:29 Agent Dilt lorazepam [From Ativan] Allergy Verified 12/03/16 22:29 Penicillins Allergy Verified 12/03/16 22:29 vancomycin Allergy Verified 12/03/16 22:29 Medications: Current Medications Acetaminophen (Tylenol) 650 mg PO Q4H PRN PRN Reason: Headache/Fever or Pain Hydrocodone Bitart/Acetaminophen ([place] 7.5/325) 1 tab PO Q4H PRN PRN Reason: Moderate Pain (4-6) Hydrocodone Bitart/Acetaminophen ([place] 7.5/325) 2 tab PO Q4H PRN PRN Reason: Severe Pain (7-10) Albuterol/Ipratropium (Duoneb) 3 ml NEB Q4H PRN PRN Reason: Wheezing Enoxaparin Sodium (Lovenox) 30 mg SC 0900 [facility] Last Admin: 12/10/16 11:18 Dose: Not Given Famotidine (Pepcid) 20 mg PO Q12HR [facility] Last Admin: 12/10/16 11:18 Dose: Not Given Famotidine (Pepcid) 20 mg SLOW IVP Q12HR [facility] Last Admin: 10/06/17 11:18 Dose: Not Given Hydralazine HCl (Apresoline) 5 mg SLOW IVP Q4H PRN PRN Reason: SBP Greater Than 170 Hydralazine HCl (Apresoline) 10 mg SLOW IVP Q4H PRN PRN Reason: SBP > 170 or DBP > 100 Potassium Chloride/Dextrose/Sod Cl (D5 1/2 Ns W/20 Meq Kcl) 1,000 mls @ 45 mls/ hr IV .[id number] [facility] Last Admin: 12/10/16 11:18 Dose: 1,000 mls Fat Emulsion Intravenous 200 ml/ Sodium Acetate 40 meq/Sodium Chloride 30 meq/ Potassium Chloride 40 meq/Potassium Phosphate 30 mmol/Calcium Chloride 10 meq/ Magnesium Sulfate 15 meq/Multivitamins 10 ml/ Chromium/Copper/Manganese/Seleni/ Zn 5 ml/ Dextrose/Water/ Sterile Water/ Amino Acids 1,577.5474 mls @ 65.731 mls /hr IV 2200 [facility] Last Admin: 12/09/16 22:17 Dose: 1,577.5474 mls Morphine Sulfate (Morphine Sulfate) 2 mg SLOW IVP Q2H PRN PRN Reason: Mild Pain (1-3) Morphine Sulfate (Morphine Sulfate) 4 mg SLOW IVP Q2H PRN PRN Reason: Moderate Pain (4-6) Last Admin: 12/10/16 11:06 Dose: 4 mg Morphine Sulfate (Morphine Sulfate) 6 mg SLOW IVP Q2H PRN PRN Reason: Severe Pain (7-10) Ondansetron HCl (Zofran) 4 mg IVP Q6H PRN PRN Reason: Nausea/Vomiting Last Admin: 12/10/16 11:02 Dose: 4 mg Promethazine HCl (Phenergan) 12.5 mg IM Q4H PRN PRN Reason: Nausea/Vomiting Sodium Chloride (Flush - Normal Saline) 10 ml IVF Q12HR [facility] Last Admin: 12/10/16 11:18 Dose: 10 ml Sodium Chloride (Flush - Normal Saline) 10 ml IVF PRN PRN PRN Reason: Saline Flush Last Admin: 12/09/16 21:04 Dose: 10 ml
[2016-12-10] MEDS: Fat Emulsion 200 ML, Sodium Acetate 2 mEq/ml 40 MEQ, Sodium Chloride 30 MEQ, Potassium ... IV SCH ×11 (22:21)
[2016-12-11] MEDS: D5 1/2 NS w/20 mEq KCL 1,000 ML IV SCH ×2 (00:38→22:36)
[2016-12-11 05:11] LABS: ALT (SGPT) Less than 7 U/L (8-55); AST (SGOT) 24 U/L (5-34); Alkaline Phosphatase 222 U/L (40-150); Anion Gap 8 mmol/L (10-20); BUN (Urea Nitrogen) 14 mg/dL (9.8-20.1); Bilirubin, Total 0.5 mg/dL (0.2-1.2); Calc. Creatinine Clearance 55 mL/min (70-130); Calcium 8.3 mg/dL (7.8-10.44); Carbon Dioxide 30 mmol/L (23-31); Chloride 99 mmol/L (98-107); Estimated GFR-MDRD Greater than 90; Globulin 3.2 g/dL (2.4-3.5); Magnesium 1.9 mg/dL (1.6-2.6); Phosphorus 3.3 mg/dL (2.3-4.7); Protein, Total 5.7 g/dL (6.0-8.3)
--- NOTE | 2016-12-11 08:24 | PRG ---
DATE OF SERVICE: 12/11/2016 Yesterday, I had a call from general oncology surgeon at [facility] to discuss Ms. Booker's situation . We discussed findings at the time of the operation as well as path reports. Because of the uncer tainty of the actual tumor origin and tissue type, she is not going to accept the patient in transfe r. She would rather have the slides reviewed, so that the patient can get appropriate referral. In the meantime, she advised that she be discharged with home TPN. The patient, however, is reluctant to go home with home TPN, because [place] and it [place] be difficu [place] for nurses or caretakers to come visit her, so I have told her activity aide here of that and he is marisela galeano to work it out. She feels pretty good. She does have pain at night when the TPN is running, b ut it is controlled with medications. No nausea or vomiting. She is able to take a little bit of o ral liquids. PHYSICAL EXAMINATION: VITAL SIGNS: Her temperature is 98, pulse 91, blood pressure 145/75. She looks pretty good. ABDOMEN: Soft. There is this obvious large mass in the lower abdomen. The incisions are healing f ine. 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 PLAN: Slides to [facility] for review, appropriate referral when it is determined, home TPN, PICC line.
[2016-12-11] MEDS: Enoxaparin Sodium 30 MG/0.3 ML SYRINGE SC SCH (09:29)
[2016-12-11] MEDS: Famotidine/PF 20 mg/2ml Vial SLOW IVP SCH ×2 (09:29→20:50)
[2016-12-11] MEDS: Famotidine 20 MG TAB PO SCH ×2 (09:29→19:57)
--- NOTE | 2016-12-11 12:18 | PDOC.PN ---
- Subjective Encounter Start Date: 12/11/16 Encounter Start Time: 09:00 Subjective: pain is better with morphine -: no nausea or vomiting - Objective MAR Reviewed: Yes Vital Signs & Weight: Vital Signs (12 hours) Temp Pulse Resp BP Pulse Ox 12/11/16 08:00 98 F 95 18 151/79 H 98 Weight Admit Weight 74 lb 15.312 oz Weight 74 lb 15.312 oz I&O: 12/10/16 12/11/16 12/12/16 06:59 06:59 06:59 Intake Total 120 1740 Output Total 1500 150 Balance -1380 1590 Result Diagrams: 12/09/16 04:29 12/11/16 04:27 Phys Exam - Physical Examination HEENT: PERRLA, moist MMs Neck: no JVD, supple Respiratory: no wheezing, no rales Cardiovascular: RRR, no significant murmur Gastrointestinal: soft, no distention, positive bowel sounds has central abd mass in lower midline Musculoskeletal: no edema, pulses present Neurological: non-focal, moves all 4 limbs Psychiatric: A&O x 3 Dx/Plan (1) Abdominal mass Code(s): R19.00 - INTRA-ABD AND PELVIC SWELLING, MASS AND LUMP, UNSP SITE Status: Acute Comment: poorly differentiated carcinoma (2) Cachexia Code(s): R64 - CACHEXIA Status: Acute (3) significant weight loss Status: Acute Comment: around 75lbs (4) Anemia Code(s): D64.9 - ANEMIA, UNSPECIFIED Status: Chronic Qualifiers: Anemia type: unspecified type Qualified Code(s): D64.9 - Anemia, unspecified (5) h/o gadolinium toxicity Status: Chronic Comment: had mri with contrast in 2014 and still apparently has high levels in her body - Plan is on TPN -: d/w , histo slides to be sent to [facility] -: Picc line, dc plan to swing/ltac for tpn -: d/w patient, 2 sons, daughter and at bedside -: CA 125 levels are high as well * . Review of Systems - Medications/Allergies Allergies/Adverse Reactions: Allergies Allergy/AdvReac Type Severity Reaction Status Date / Time Calcium Channel Blocking Allergy Verified 12/03/16 22:29 Agent Dilt lorazepam [From Ativan] Allergy Verified 12/03/16 22:29 Penicillins Allergy Verified 12/03/16 22:29 vancomycin Allergy Verified 12/03/16 22:29 Medications: Current Medications Acetaminophen (Tylenol) 650 mg PO Q4H PRN PRN Reason: Headache/Fever or Pain Hydrocodone Bitart/Acetaminophen ([place] 7.5/325) 1 tab PO Q4H PRN PRN Reason: Moderate Pain (4-6) Hydrocodone Bitart/Acetaminophen ([place] 7.5/325) 2 tab PO Q4H PRN PRN Reason: Severe Pain (7-10) Albuterol/Ipratropium (Duoneb) 3 ml NEB Q4H PRN PRN Reason: Wheezing Enoxaparin Sodium (Lovenox) 30 mg SC 0900 [facility] Last Admin: 12/11/16 09:29 Dose: Not Given Famotidine (Pepcid) 20 mg PO Q12HR [facility] Last Admin: 12/11/16 09:29 Dose: Not Given Famotidine (Pepcid) 20 mg SLOW IVP Q12HR [facility] Last Admin: 12/11/16 09:29 Dose: Not Given Hydralazine HCl (Apresoline) 5 mg SLOW IVP Q4H PRN PRN Reason: SBP Greater Than 170 Hydralazine HCl (Apresoline) 10 mg SLOW IVP Q4H PRN PRN Reason: SBP > 170 or DBP > 100 Potassium Chloride/Dextrose/Sod Cl (D5 1/2 Ns W/20 Meq Kcl) 1,000 mls @ 45 mls/ hr IV .[id number] [facility] Last Admin: 12/11/16 00:38 Dose: 1,000 mls Fat Emulsion Intravenous 200 ml/ Sodium Acetate 40 meq/Sodium Chloride 30 meq/ Potassium Chloride 40 meq/Potassium Phosphate 30 mmol/Calcium Chloride 10 meq/ Magnesium Sulfate 15 meq/Multivitamins 10 ml/ Chromium/Copper/Manganese/Seleni/ Zn 5 ml/ Dextrose/Water/ Sterile Water/ Amino Acids 1,577.5474 mls @ 65.731 mls /hr IV 2200 [facility] Last Admin: 12/10/16 22:21 Dose: 1,577.5474 mls Morphine Sulfate (Morphine Sulfate) 2 mg SLOW IVP Q2H PRN PRN Reason: Mild Pain (1-3) Morphine Sulfate (Morphine Sulfate) 4 mg SLOW IVP Q2H PRN PRN Reason: Moderate Pain (4-6) Last Admin: 12/10/16 22:22 Dose: 4 mg Morphine Sulfate (Morphine Sulfate) 6 mg SLOW IVP Q2H PRN PRN Reason: Severe Pain (7-10) Ondansetron HCl (Zofran) 4 mg IVP Q6H PRN PRN Reason: Nausea/Vomiting Last Admin: 12/10/16 22:23 Dose: 4 mg Promethazine HCl (Phenergan) 12.5 mg IM Q4H PRN PRN Reason: Nausea/Vomiting Sodium Chloride (Flush - Normal Saline) 10 ml IVF Q12HR [facility] Last Admin: 12/11/16 09:30 Dose: Not Given Sodium Chloride (Flush - Normal Saline) 10 ml IVF PRN PRN PRN Reason: Saline Flush Last Admin: 12/09/16 21:04 Dose: 10 ml
[2016-12-11] MEDS: Ondansetron HCl/PF 4 MG/2 ML Vial IVP PRN ×2 (12:56→22:37)
[2016-12-11] MEDS: Fat Emulsion 200 ML, Sodium Acetate 2 mEq/ml 40 MEQ, Sodium Chloride 30 MEQ, Potassium ... IV SCH ×11 (22:41)
[2016-12-12 07:17] LABS: ALT (SGPT) 7 U/L (8-55); AST (SGOT) 26 U/L (5-34); Alkaline Phosphatase 332 U/L (40-150); Anion Gap 12 mmol/L (10-20); BUN (Urea Nitrogen) 12 mg/dL (9.8-20.1); Bilirubin, Total 0.7 mg/dL (0.2-1.2); Calc. Creatinine Clearance 59 mL/min (70-130); Calcium 8.4 mg/dL (7.8-10.44); Carbon Dioxide 26 mmol/L (23-31); Chloride 98 mmol/L (98-107); Estimated GFR-MDRD Greater than 90; Globulin 3.4 g/dL (2.4-3.5); Magnesium 1.9 mg/dL (1.6-2.6); Phosphorus 3.5 mg/dL (2.3-4.7); Protein, Total 5.9 g/dL (6.0-8.3)
[2016-12-12] MEDS: Famotidine 20 MG TAB PO SCH ×2 (09:20→20:45)
[2016-12-12] MEDS: Enoxaparin Sodium 30 MG/0.3 ML SYRINGE SC SCH (11:13)
[2016-12-12] MEDS: Ondansetron HCl/PF 4 MG/2 ML Vial IVP PRN ×2 (12:32→23:15)
--- NOTE | 2016-12-12 13:06 | PDOC.PN ---
- Subjective Encounter Start Date: 12/12/16 Encounter Start Time: 10:15 Subjective: c/o abd pain, no nausea or vomiting - Objective MAR Reviewed: Yes Vital Signs & Weight: Vital Signs (12 hours) Temp Pulse Resp BP Pulse Ox 12/12/16 08:00 98.4 F 107 H 16 151/84 H 96 Weight Admit Weight 74 lb 15.312 oz Weight 74 lb 15.312 oz I&O: 12/11/16 12/12/16 12/13/16 06:59 06:59 06:59 Intake Total 1740 1588 Output Total 150 1800 Balance 1590 -212 Result Diagrams: 12/09/16 04:29 12/12/16 05:33 Phys Exam - Physical Examination HEENT: PERRLA, moist MMs Neck: no JVD, supple Respiratory: no wheezing, no rales Cardiovascular: RRR, no significant murmur Gastrointestinal: soft, positive bowel sounds abd mass+ Musculoskeletal: pulses present, edema present Neurological: non-focal, moves all 4 limbs Psychiatric: A&O x 3 Dx/Plan (1) Abdominal mass Code(s): R19.00 - INTRA-ABD AND PELVIC SWELLING, MASS AND LUMP, UNSP SITE Status: Acute Comment: poorly differentiated carcinoma (2) Cachexia Code(s): R64 - CACHEXIA Status: Acute (3) significant weight loss Status: Acute Comment: around 75lbs (4) Anemia Code(s): D64.9 - ANEMIA, UNSPECIFIED Status: Chronic Qualifiers: Anemia type: unspecified type Qualified Code(s): D64.9 - Anemia, unspecified (5) h/o gadolinium toxicity Status: Chronic Comment: had mri with contrast in 2014 and still apparently has high levels in her body (6) Protein-calorie malnutrition, severe Code(s): E43 - UNSPECIFIED SEVERE PROTEIN-CALORIE MALNUTRITION Status: Chronic - Plan is on TPN -: picc line -: awaiting placement -: her histopath specimen needs to be sent to [facility] in am per Onc advice -: morphine prn * . Review of Systems - Medications/Allergies Allergies/Adverse Reactions: Allergies Allergy/AdvReac Type Severity Reaction Status Date / Time Calcium Channel Blocking Allergy Verified 12/03/16 22:29 Agent Dilt lorazepam [From Ativan] Allergy Verified 12/03/16 22:29 Penicillins Allergy Verified 12/03/16 22:29 vancomycin Allergy Verified 12/03/16 22:29 Medications: Current Medications Acetaminophen (Tylenol) 650 mg PO Q4H PRN PRN Reason: Headache/Fever or Pain Hydrocodone Bitart/Acetaminophen ([place] 7.5/325) 1 tab PO Q4H PRN PRN Reason: Moderate Pain (4-6) Hydrocodone Bitart/Acetaminophen ([place] 7.5/325) 2 tab PO Q4H PRN PRN Reason: Severe Pain (7-10) Albuterol/Ipratropium (Duoneb) 3 ml NEB Q4H PRN PRN Reason: Wheezing Enoxaparin Sodium (Lovenox) 30 mg SC 0900 [facility] Last Admin: 12/12/16 11:13 Dose: Not Given Famotidine (Pepcid) 20 mg PO Q12HR [facility] Last Admin: 12/12/16 09:20 Dose: Not Given Hydralazine HCl (Apresoline) 10 mg SLOW IVP Q4H PRN PRN Reason: SBP > 170 or DBP > 100 Fat Emulsion Intravenous 200 ml/ Sodium Acetate 40 meq/Sodium Chloride 30 meq/ Potassium Chloride 40 meq/Potassium Phosphate 30 mmol/Calcium Chloride 10 meq/ Magnesium Sulfate 15 meq/Multivitamins 10 ml/ Chromium/Copper/Manganese/Seleni/ Zn 5 ml/ Dextrose/Water/ Sterile Water/ Amino Acids 1,577.5474 mls @ 65.731 mls /hr IV 2200 [facility] Stop: 12/12/16 21:59 Last Admin: 12/11/16 22:41 Dose: 1,577.5474 mls Fat Emulsion Intravenous 200 ml/ Sodium Acetate 40 meq/Sodium Chloride 50 meq/ Potassium Chloride 40 meq/Potassium Phosphate 30 mmol/Calcium Chloride 10 meq/ Magnesium Sulfate 15 meq/Multivitamins 10 ml/ Chromium/Copper/Manganese/Seleni/ Zn 5 ml/ Dextrose/Water/ Sterile Water/ Amino Acids 1,582.5474 mls @ 65.939 mls /hr IV 2200 [facility] Morphine Sulfate (Morphine Sulfate) 2 mg SLOW IVP Q2H PRN PRN Reason: Mild Pain (1-3) Morphine Sulfate (Morphine Sulfate) 4 mg SLOW IVP Q2H PRN PRN Reason: Moderate Pain (4-6) Last Admin: 12/12/16 12:32 Dose: 4 mg Morphine Sulfate (Morphine Sulfate) 6 mg SLOW IVP Q2H PRN PRN Reason: Severe Pain (7-10) Ondansetron HCl (Zofran) 4 mg IVP Q6H PRN PRN Reason: Nausea/Vomiting Last Admin: 12/12/16 12:32 Dose: 4 mg Promethazine HCl (Phenergan) 12.5 mg IM Q4H PRN PRN Reason: Nausea/Vomiting Sodium Chloride (Flush - Normal Saline) 10 ml IVF Q12HR [facility] Last Admin: 12/12/16 11:13 Dose: Not Given Sodium Chloride (Flush - Normal Saline) 10 ml IVF PRN PRN PRN Reason: Saline Flush Last Admin: 12/09/16 21:04 Dose: 10 ml
[2016-12-12] MEDS: SODIUM ACETATE IV SCH ×11 (23:17)
[2016-12-12] MEDS: SODIUM CHLORIDE IV SCH ×11 (23:17)
[2016-12-12] MEDS: FAT EMULSION IV SCH ×11 (23:17)
[2016-12-12] MEDS: [UNRECOGNIZED DRUG - OTHER] IV SCH ×11 (23:17)
[2016-12-13 06:37] LABS: ALT (SGPT) Less than 7 U/L (8-55); AST (SGOT) 23 U/L (5-34); Alkaline Phosphatase 325 U/L (40-150); Anion Gap 11 mmol/L (10-20); BUN (Urea Nitrogen) 15 mg/dL (9.8-20.1); Bilirubin, Total 0.6 mg/dL (0.2-1.2); Calc. Creatinine Clearance 55 mL/min (70-130); Calcium 8.6 mg/dL (7.8-10.44); Carbon Dioxide 29 mmol/L (23-31); Chloride 98 mmol/L (98-107); Estimated GFR-MDRD Greater than 90; Globulin 3.4 g/dL (2.4-3.5); Phosphorus 3.6 mg/dL (2.3-4.7)
[2016-12-13] MEDS: Famotidine 20 MG TAB PO SCH ×2 (08:58→21:12)
[2016-12-13] MEDS: Enoxaparin Sodium 30 MG/0.3 ML SYRINGE SC SCH (08:58)
--- NOTE | 2016-12-13 11:28 | SPC ---
ULTRASOUND GUIDED RIGHT UPPER EXTREMITY PICC PLACEMENT: Date: 12/13/16 HISTORY: 76-year-old female in need of IV access for TPN and chemotherapy. FINDINGS: Informed consent was obtained prior to the procedure. Preprocedural imaging demonstrates a patent right basilic vein. Right antecubital fossa is prepped a nd raped in the normal sterile fashion and anesthetized with 1% buffered lidocaine. With direct sono graphic guidance, vascular access is obtained via the right basilic vein a .018 wire advanced into t he inferior vena cava, subsequently retracted to the cavoatrial junction. Intravascular length calcu lated at 40 cm and the PICC cut accordingly. The needle was removed and replaced with a peel-away sheath. PICC advanced over the wire. Wire and p eel-away sheath were removed, with catheter tip overlying the cavoatrial junction. Both ports flush well and the catheter is ready for use. A dual lumen PICC was placed. Exposure Data: 0.6 minutes of fluoroscopic time, 1171 mGy*cm\S\2. IMPRESSION: Successful ultrasound guided right upper extremity dual lumen PICC placement. POS: GARRETT
[2016-12-13] MEDS: Ondansetron HCl/PF 4 MG/2 ML Vial IVP PRN ×2 (11:44→21:13)
--- NOTE | 2016-12-13 13:46 | PDOC.PN ---
- Subjective Encounter Start Date: 12/13/16 Encounter Start Time: 09:15 Subjective: abd pain is better, no nausea -: wants to be DNR - Objective Resuscitation Status: Resuscitation Status DNR:Do Not Resuscitate MAR Reviewed: Yes Vital Signs & Weight: Vital Signs (12 hours) Temp Pulse Resp BP Pulse Ox 12/13/16 08:00 98.6 F 98 16 95 12/13/16 07:28 98.6 F 98 16 133/77 95 Weight Admit Weight 74 lb 15.312 oz Weight 74 lb 15.312 oz I&O: 12/12/16 12/13/16 12/14/16 06:59 06:59 06:59 Intake Total 1588 901 Output Total 1800 1650 Balance -021 -604 Result Diagrams: 12/09/16 04:29 12/13/16 05:34 Additional Labs: Accuchecks 12/13/16 12/13/16 12/12/16 11:29 04:46 19:57 POC Glucose 128 H 122 H 117 H Phys Exam - Physical Examination HEENT: PERRLA, moist MMs Neck: no JVD, supple Respiratory: no wheezing, no rales Cardiovascular: RRR, no significant murmur Gastrointestinal: soft, positive bowel sounds mass+++ Musculoskeletal: pulses present, edema present Neurological: non-focal, moves all 4 limbs Psychiatric: A&O x 3 Dx/Plan (1) Abdominal mass Code(s): R19.00 - INTRA-ABD AND PELVIC SWELLING, MASS AND LUMP, UNSP SITE Status: Acute Comment: poorly differentiated carcinoma (2) Cachexia Code(s): R64 - CACHEXIA Status: Acute (3) significant weight loss Status: Acute Comment: around 75lbs (4) Anemia Code(s): D64.9 - ANEMIA, UNSPECIFIED Status: Chronic Qualifiers: Anemia type: unspecified type Qualified Code(s): D64.9 - Anemia, unspecified (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 D/w and patient at bedside * . Review of Systems - Medications/Allergies Allergies/Adverse Reactions: Allergies Allergy/AdvReac Type Severity Reaction Status Date / Time Calcium Channel Blocking Allergy Verified 12/03/16 22:29 Agent Dilt lorazepam [From Ativan] Allergy Verified 12/03/16 22:29 Penicillins Allergy Verified 12/03/16 22:29 vancomycin Allergy Verified 12/03/16 22:29 Medications: Current Medications Acetaminophen (Tylenol) 650 mg PO Q4H PRN PRN Reason: Headache/Fever or Pain Hydrocodone Bitart/Acetaminophen ([place] 7.5/325) 1 tab PO Q4H PRN PRN Reason: Moderate Pain (4-6) Hydrocodone Bitart/Acetaminophen ([place] 7.5/325) 2 tab PO Q4H PRN PRN Reason: Severe Pain (7-10) Albuterol/Ipratropium (Duoneb) 3 ml NEB Q4H PRN PRN Reason: Wheezing Enoxaparin Sodium (Lovenox) 30 mg SC 0900 [facility] Last Admin: 12/13/16 08:58 Dose: Not Given Famotidine (Pepcid) 20 mg PO Q12HR [facility] Last Admin: 12/13/16 08:58 Dose: Not Given Hydralazine HCl (Apresoline) 10 mg SLOW IVP Q4H PRN PRN Reason: SBP > 170 or DBP > 100 Fat Emulsion Intravenous 200 ml/ Sodium Acetate 40 meq/Sodium Chloride 50 meq/ Potassium Chloride 40 meq/Potassium Phosphate 30 mmol/Calcium Chloride 10 meq/ Magnesium Sulfate 15 meq/Multivitamins 10 ml/ Chromium/Copper/Manganese/Seleni/ Zn 5 ml/ Dextrose/Water/ Sterile Water/ Amino Acids 1,582.5474 mls @ 65.939 mls /hr IV 2200 [facility] Last Admin: 12/12/16 23:17 Dose: 1,582.5474 mls Morphine Sulfate (Morphine Sulfate) 2 mg SLOW IVP Q2H PRN PRN Reason: Mild Pain (1-3) Morphine Sulfate (Morphine Sulfate) 4 mg SLOW IVP Q2H PRN PRN Reason: Moderate Pain (4-6) Last Admin: 12/13/16 11:44 Dose: 4 mg Morphine Sulfate (Morphine Sulfate) 6 mg SLOW IVP Q2H PRN PRN Reason: Severe Pain (7-10) Ondansetron HCl (Zofran) 4 mg IVP Q6H PRN PRN Reason: Nausea/Vomiting Last Admin: 12/13/16 11:44 Dose: 4 mg Promethazine HCl (Phenergan) 12.5 mg IM Q4H PRN PRN Reason: Nausea/Vomiting Sodium Chloride (Flush - Normal Saline) 10 ml IVF Q12HR [facility] Last Admin: 12/13/16 08:59 Dose: 10 ml Sodium Chloride (Flush - Normal Saline) 10 ml IVF PRN PRN PRN Reason: Saline Flush Last Admin: 12/09/16 21:04 Dose: 10 ml
[2016-12-13] MEDS: SODIUM CHLORIDE IV SCH ×11 (22:16)
[2016-12-13] MEDS: FAT EMULSION IV SCH ×11 (22:16)
[2016-12-13] MEDS: [UNRECOGNIZED DRUG - OTHER] IV SCH ×11 (22:16)
[2016-12-13] MEDS: SODIUM ACETATE IV SCH ×11 (22:16)
[2016-12-14] MEDS: Ondansetron HCl/PF 4 MG/2 ML Vial IVP PRN ×2 (07:40→17:42)
[2016-12-14] MEDS: Enoxaparin Sodium 30 MG/0.3 ML SYRINGE SC SCH (07:40)
[2016-12-14] MEDS: Famotidine 20 MG TAB PO SCH ×2 (07:41→19:18)
--- NOTE | 2016-12-14 11:03 | PDOC.PN ---
- Subjective Encounter Start Date: 12/14/16 Encounter Start Time: 09:15 Subjective: has abd pain, no nausea or vomiting -: had some dinner -: is passing flatus - Objective Resuscitation Status: Resuscitation Status DNR:Do Not Resuscitate MAR Reviewed: Yes Vital Signs & Weight: Vital Signs (12 hours) Temp Pulse Resp BP Pulse Ox 12/14/16 07:56 98 F 100 16 138/80 95 Weight Admit Weight 74 lb 15.312 oz Weight 74 lb 15.312 oz I&O: 12/13/16 12/14/16 12/15/16 06:59 06:59 06:59 Intake Total 901 1160 480 Output Total 1650 Balance -749 1160 480 Result Diagrams: 12/09/16 04:29 12/13/16 05:34 Additional Labs: Accuchecks 12/14/16 12/13/16 12/13/16 04:37 20:06 15:51 POC Glucose 135 H 119 H 147 H 12/13/16 11:29 POC Glucose 128 H Phys Exam - Physical Examination HEENT: PERRLA, moist MMs Neck: no JVD, supple Respiratory: no wheezing, no rales Cardiovascular: RRR, no significant murmur Gastrointestinal: soft, positive bowel sounds mass+++ Musculoskeletal: no edema, pulses present Neurological: non-focal, moves all 4 limbs Psychiatric: A&O x 3 Dx/Plan (1) Abdominal mass Code(s): R19.00 - INTRA-ABD AND PELVIC SWELLING, MASS AND LUMP, UNSP SITE Status: Acute Comment: poorly differentiated carcinoma (2) Cachexia Code(s): R64 - CACHEXIA Status: Acute (3) significant weight loss Status: Acute Comment: around 75lbs (4) Anemia Code(s): D64.9 - ANEMIA, UNSPECIFIED Status: Chronic Qualifiers: Anemia type: unspecified type Qualified Code(s): D64.9 - Anemia, unspecified (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 Review of Systems - Medications/Allergies Allergies/Adverse Reactions: Allergies Allergy/AdvReac Type Severity Reaction Status Date / Time Calcium Channel Blocking Allergy Verified 12/03/16 22:29 Agent Dilt lorazepam [From Ativan] Allergy Verified 12/03/16 22:29 Penicillins Allergy Verified 12/03/16 22:29 vancomycin Allergy Verified 12/03/16 22:29 Medications: Current Medications Acetaminophen (Tylenol) 650 mg PO Q4H PRN PRN Reason: Headache/Fever or Pain Hydrocodone Bitart/Acetaminophen ([place] 7.5/325) 1 tab PO Q4H PRN PRN Reason: Moderate Pain (4-6) Hydrocodone Bitart/Acetaminophen ([place] 7.5/325) 2 tab PO Q4H PRN PRN Reason: Severe Pain (7-10) Albuterol/Ipratropium (Duoneb) 3 ml NEB Q4H PRN PRN Reason: Wheezing Enoxaparin Sodium (Lovenox) 30 mg SC 0900 [facility] Last Admin: 12/14/16 07:40 Dose: Not Given Famotidine (Pepcid) 20 mg PO Q12HR [facility] Last Admin: 12/14/16 07:41 Dose: Not Given Hydralazine HCl (Apresoline) 10 mg SLOW IVP Q4H PRN PRN Reason: SBP > 170 or DBP > 100 Fat Emulsion Intravenous 200 ml/ Sodium Acetate 40 meq/Sodium Chloride 50 meq/ Potassium Chloride 40 meq/Potassium Phosphate 30 mmol/Calcium Chloride 10 meq/ Magnesium Sulfate 15 meq/Multivitamins 10 ml/ Chromium/Copper/Manganese/Seleni/ Zn 5 ml/ Dextrose/Water/ Sterile Water/ Amino Acids 1,582.5474 mls @ 65.939 mls /hr IV 2200 [facility] Last Admin: 12/13/16 22:16 Dose: 1,582.5474 mls Morphine Sulfate (Morphine Sulfate) 2 mg SLOW IVP Q2H PRN PRN Reason: Mild Pain (1-3) Morphine Sulfate (Morphine Sulfate) 4 mg SLOW IVP Q2H PRN PRN Reason: Moderate Pain (4-6) Last Admin: 12/14/16 07:40 Dose: 4 mg Morphine Sulfate (Morphine Sulfate) 6 mg SLOW IVP Q2H PRN PRN Reason: Severe Pain (7-10) Ondansetron HCl (Zofran) 4 mg IVP Q6H PRN PRN Reason: Nausea/Vomiting Last Admin: 12/14/16 07:40 Dose: 4 mg Promethazine HCl (Phenergan) 12.5 mg IM Q4H PRN PRN Reason: Nausea/Vomiting Sodium Chloride (Flush - Normal Saline) 10 ml IVF Q12HR [facility] Last Admin: 12/14/16 07:41 Dose: 10 ml Sodium Chloride (Flush - Normal Saline) 10 ml IVF PRN PRN PRN Reason: Saline Flush Last Admin: 12/09/16 21:04 Dose: 10 ml
[2016-12-14] MEDS: [UNRECOGNIZED DRUG - OTHER] IV SCH ×11 (22:16)
[2016-12-14] MEDS: FAT EMULSION IV SCH ×11 (22:16)
[2016-12-14] MEDS: SODIUM ACETATE IV SCH ×11 (22:16)
[2016-12-14] MEDS: SODIUM CHLORIDE IV SCH ×11 (22:16)
[2016-12-15] MEDS: Ondansetron HCl/PF 4 MG/2 ML Vial IVP PRN ×2 (00:40→10:04)
[2016-12-15] MEDS: Enoxaparin Sodium 30 MG/0.3 ML SYRINGE SC SCH (10:01)
[2016-12-15] MEDS: Famotidine 20 MG TAB PO SCH (10:01)
[2016-12-15] MEDS: HYDROcodone/Acetaminophen 7.5/325 mg Tablet PO PRN ×2 (10:02→14:58)
[2016-12-15 13:46] VITALS: BP 140/82; TEMP 97.5
--- NOTE | 2016-12-15 13:57 | PDOC.PN ---
- Subjective Encounter Start Date: 12/15/16 Encounter Start Time: 08:00 Subjective: no nausea, tolerating some liq diet off and on -: is passing flatus - Objective Resuscitation Status: Resuscitation Status DNR:Do Not Resuscitate MAR Reviewed: Yes Vital Signs & Weight: Vital Signs (12 hours) Temp Pulse Resp BP Pulse Ox 12/15/16 12:00 97.5 F L 99 16 140/82 99 12/15/16 08:00 98.2 F 108 H 16 147/81 H 94 L Weight Admit Weight 74 lb 15.312 oz Weight 74 lb 15.312 oz I&O: 12/14/16 12/15/16 12/16/16 06:59 06:59 06:59 Intake Total 1160 3132 Balance 1160 3132 Result Diagrams: 12/09/16 04:29 12/13/16 05:34 Additional Labs: Accuchecks 12/15/16 12/14/16 12/14/16 04:46 21:23 16:04 POC Glucose 129 H 121 H 127 H Phys Exam - Physical Examination HEENT: PERRLA, moist MMs Neck: no JVD, supple Respiratory: no wheezing, no rales Cardiovascular: RRR, no significant murmur Gastrointestinal: soft, positive bowel sounds mass +++ Musculoskeletal: no edema, pulses present Neurological: non-focal, moves all 4 limbs Psychiatric: A&O x 3 Dx/Plan (1) Abdominal mass Code(s): R19.00 - INTRA-ABD AND PELVIC SWELLING, MASS AND LUMP, UNSP SITE Status: Acute Comment: poorly differentiated carcinoma (2) Cachexia Code(s): R64 - CACHEXIA Status: Acute (3) significant weight loss Status: Acute Comment: around 75lbs (4) Anemia Code(s): D64.9 - ANEMIA, UNSPECIFIED Status: Chronic Qualifiers: Anemia type: unspecified type Qualified Code(s): D64.9 - Anemia, unspecified (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
[2016-12-15] MEDS ORDERED: [UNRECOGNIZED DRUG - OTHER] IV SCH ×9 (22:00)
[2016-12-15] MEDS ORDERED: FAT EMULSION IV SCH ×9 (22:00)
[2016-12-15] MEDS ORDERED: SODIUM ACETATE IV SCH ×9 (22:00)
[2016-12-15] MEDS ORDERED: SODIUM CHLORIDE IV SCH ×9 (22:00)
--- NOTE | 2016-12-16 06:05 | DIS ---
DATE OF ADMISSION: 12/03/2016 DATE OF DISCHARGE: 12/15/2016 DISCHARGE DISPOSITION: To [facility] in [place]. PRIMARY DISCHARGE DIAGNOSES: Poorly differentiated carcinoma with mesenteric mass, cachexia, weight loss of 75 pounds, severe protein malnutrition on TPN, anemia. SECONDARY DISCHARGE DIAGNOSIS: History of gadolinium toxicity. PROCEDURES DONE DURING HOSPITALIZATION: The patient has had abdominal and pelvic CAT scan done on day of admission, which showed a 16 x 8.4 cm mesenteric mass in the central abdominal mesentery. There was also evidence of air attenuation in the central aspect along with fluid and air. She has had laparoscopy-assisted incisional biopsy of her mesenteric mass along with placement of left subc lavian central line on 12/05/2016. Histopathology of the mass shows poorly differentiated carcinoma . The only markers of significant diagnostic relevance was CDX2 which was strongly positive, which is usually seen in tumors of intestinal phenotype, also progesterone receptor was positive. The sheldon or had unusual morphology and immunohistochemical profile. The report along with slides and paraffi n block were sent to [facility] for second opinion on 12/13/2016. She has had a PICC line placed on 12/13/2016. H\T\H 9 and 28 with platelet count of 251. Serum iron 20, TIBC 159, ir on percent saturation was 13, ferritin 149. B12 of 988, folic acid 7.9. Albumin was 3.2 on the day of admission. She has had a flow cytometry done of the abdominal tissue which was suggestive of no nhematopoietic neoplasm. There was no diagnostic flow cytometric evidence for an abnormal or neoplas tic T lymphoid or B lymphoid population in the analyzed sample. DISCHARGE MEDICATIONS: Fentanyl 12 mcg q.72 hourly, Pepcid 20 mg twice daily, ferrous sulfate 325 m g daily, TPN 1 L for a day. ALLERGIES: CALCIUM CHANNEL SUSANNA, GADOLINIUM, LORAZEPAM, PENICILLIN, VANCOMYCIN. INPATIENT CONSULTS: Dr. Mario for Oncology, Dr. Colon for General Surgery. BRIEF COURSE DURING HOSPITALIZATION: The patient initially got admitted on 12/03 for complaints of abdominal pain. She was found to have had a large mass in her abdomen, which was occupying most of her lower quadrants. Her CAT scan findings were described above. She has had consultation with Dr. Colon who was on-call for General Surgery. Patient has had laparoscopic incisional biopsy done. histopathology revealed poorly differentiated carcinoma. An accurate origin of the carcinoma cou ld not be identified. Her tissue sample has been sent to [facility] on the of this month for f saither identification of the tumor. In view of her significant weight loss of nearly 75 pounds with protein malnutrition and poor oral intake due to massive mass in her abdomen, the patient was place d on TPN. This is for her to recuperate well prior to receiving definitive therapy for her cancer. Her code status is DNR and I have confirmed this with the patient. She is not adverse to getting s urgery or definitive treatment for her mass. She is awaiting further diagnosis and referral to [facility] via Dr. Mario's office. I have given a full update to Dr. Newton who will be the atten ding physician for her at the [facility]. The patient has strong history of gadolinium toxicity. She has had an MRI done in 2014 with checking her gadolinium levels at a spec ialized facility in [place] where she has had elevated levels even after 2 years per patient. A total of 35 minutes was spent on discharge planning. Please see a [id number] documentation on [facility] for the day of discharge. Her overall prognosis appears to be poor unless the cancer can be identified and treated successfully at [facility].
== END 2016-12-15 15:17 | disposition swing bed (61) | DRG 374 ==
LOC: ERS 18:26 → T4-A 22:49
PROVIDERS: ADMIT Internal Medicine; ATTEND Internal Medicine
PROC: 0DBV4ZX Excision of Mesentery, Percutaneous Endoscopic Approach, Diagnostic (ICD-10-PCS; principal; 2016-12-05)
PROC: 02HV33Z Insertion of Infusion Device into Superior Vena Cava, Percutaneous Approach (ICD-10-PCS; 2016-12-05)
PROC: 3E0436Z Introduction of Nutritional Substance into Central Vein, Percutaneous Approach (ICD-10-PCS; 2016-12-05)
PROC: 02HV33Z Insertion of Infusion Device into Superior Vena Cava, Percutaneous Approach (ICD-10-PCS; 2016-12-13)
PROC: B548ZZA Ultrasonography of Superior Vena Cava, Guidance (ICD-10-PCS; 2016-12-13)
DX: C78.6 Secondary malignant neoplasm of retroperitoneum and peritoneum (principal); E43 Unspecified severe protein-calorie malnutrition; D64.9 Anemia, unspecified; C80.1 Malignant (primary) neoplasm, unspecified; E87.8 Other disorders of electrolyte and fluid balance, not elsewhere classified; I10 Essential (primary) hypertension; Z68.1 Body mass index [BMI] 19.9 or less, adult; R64 Cachexia; R89.2 Abnormal level of other drugs, medicaments and biological substances in specimens from other organs, systems and tissues; T50.8X5S Adverse effect of diagnostic agents, sequela; Z66 Do not resuscitate; E78.5 Hyperlipidemia, unspecified; Z98.51 Tubal ligation status; F17.210 Nicotine dependence, cigarettes, uncomplicated; M79.7 Fibromyalgia; M81.0 Age-related osteoporosis without current pathological fracture; H35.30 Unspecified macular degeneration
CPT/HCPCS: 36415; 36416; 36569; 71010; 74176; 80048; 80053; 81003; 81015; 82378; 82553; 82607; 82728; 82746; 83540; 83550; 83735; 84100; 84484; 85007; 85025; 85027; 86304; 88184; 88305; 88313; 88341; 88342; 93306; 96365; 96375; A4216; A4217; C1751; J0131; J0670; J1100; J1644; J1956; J2001; J2270; J2405; J2704; J2765; J3010; J3475; J3480; J7050; S0028